=== PATIENT | female | born 1965 | race Caucasian/White ===

== ENCOUNTER 2019-12-20 14:14 | Outpatient (CLI) | payer OTHER, SELFPAY ==
--- NOTE | 2019-12-20 14:24 | MM_ITS ---
WS: [id number] BILATERAL SCREENING DIGITAL MAMMOGRAM WITH CAD HISTORY: SCREENING COMPARISON: 06/19/2015 Bilateral CC and MLO views submitted. Computer aided detection analyzed. Breast composition: There are scattered areas of fibroglandular density. No suspicious masses, microc alcifications or architectural distortion. MM/[place] [id number] IMPRESSION: BI-RADS: 1-Negative FOLLOW UP: 1 Year Follow-up
== END 2019-12-20 14:15 | disposition home or self-care (01) ==
LOC: RADSHAW 14:18
PROVIDERS: PCP Nurse Practitioner Family; Visit Provider Nurse Practitioner Family
DX: Z12.31 Encounter for screening mammogram for malignant neoplasm of breast (principal)
CPT/HCPCS: 77067

== ENCOUNTER → 2020-01-03 13:46 | Outpatient (BNVA) | payer OTHER, SELFPAY | PROVIDERS: PCP Nurse Practitioner Family; Visit Provider Obstetrics & Gynecology | DX: N95.0 Postmenopausal bleeding (principal) | CPT/HCPCS: 76830 ==

== ENCOUNTER 2021-03-06 11:08 | Inpatient (IN) | payer OTHER, SELFPAY ==
[2021-03-06] VITALS (11 sets, daily range): BP systolic 111–120; BP diastolic 72–85; PULSE 81–104; RESP 18–20; TEMP 36.3–36.9; O2SAT 83–95; BMI 36.9
--- NOTE | 2021-03-06 12:25 | XR_ITS ---
WS: [id number] XR chest 1V portable [id number] REASON FOR EXAM: dyspnea, covid FINDINGS: The heart and the mediastinum are within normal limits. There are reticular and groundglass opacities in the lower lung martin and peripheral lung martin in the mid lung. No pleural effusion identified. Mild changes of degenerative spondylosis in the mid and lower thoracic spine. XR/XR chest 1V portable [id number] IMPRESSION: Lung opacities compatible with subacute Covid pneumonitis.
--- NOTE | 2021-03-06 12:33 | W.ED.GENADLT ---
HPI - General Adult General: Chief complaint: COVID symptoms Stated complaint: COVID INFUSION CANT BE DONE Time Seen by Provider: 03/06/21 12:08 History of Present Illness: HPI narrative: CC: Shortness of breath, fever and generalized weakness HPI: This is a [55] yo patient w/ no significant PMH presenting to the ED with malaise, generalized weakness, cough sputum production, and fever at home x 5days. Patient was diagnosed with covid 5 days ago at the onset of symptoms, and was scheduled for MCA infusion today. Patient went to the clinic and was found to have a O2 sat of 84% on RA in the clinic and was told to go the ER. Since onset of symptoms, has had some shortness of breath and decreased PO intake. NO recent travel. Denies chest pain, N/V, diaphoresis, exertional shortness of breath, GI or other complaints. Denies any pleuritic chest pain, recent surgery/immobilization/travel, or hematemesis or hx of VTE in the past. Onset: 5 days ago Duration: ongoing for the last 5 days Location: home Severity: mild/moderate Associated symptoms: Reports dyspnea, nausea and vomiting; Deny chest pain, rash or palpitations Review of Systems Const: Reports: fever(s), chills and other (generalized weaknes, fatigue) Eyes: Denies: change in vision ENMT: Denies: mouth pain Card: Denies: chest pain or palpitations Resp: Reports: dyspnea and non-productive cough GI: Reports: nausea, vomiting and diarrhea; Denies: abdominal pain : Denies: dysuria Musc: Denies: extremity pain Skin/Breast: Denies: rash or new lesions Neuro: Denies: weakness in extremities Psych: Reports: other (Normal mood) Matias/Lymph: Denies: easy bruising PFSH ED PFSH: Family History Father Diabetes Hyperlipidemia Hypertension Heart disease Mother Hyperlipidemia Diabetes Hypertension Heart disease Family/Other Breast cancer paternal aunt Uterine cancer maternal cousin Denies family history of Colon cancer Ovarian cancer Clotting disorder Anesthesia complication Bleeding disorder Thyroid condition Stroke Social History Smoking and tobacco status: never smoked Alcohol intake: never Physical Exam Const: COMMON NORMALS: alert HENMT: COMMON NORMALS: atraumatic HEAD & SCALP: atraumatic MOUTH: moist mucous membranes not abnormal Eye: COMMON NORMALS: EOMs intact bilaterally and conjunctivae normal CONJUNCTIVA: Yes conjunctivae normal Neck/C-Spine: COMMON NORMALS: full ROM and supple Resp: COMMON NORMALS: normal respiratory effort; negative for clear to auscultation bilaterally (coarse breath sounds b/l) AUSCULTATION: not clear to auscultation bilaterally (coarse breath sounds b/l) Cardio: RATE: tachycardic GI: COMMON NORMALS: Soft to palpation and non-tender PALPATION: Yes Soft to palpation Extremity: COMMON NORMALS: full ROM Neuro: SENSORIUM/ORIENTATION: Yes alert MOTOR EXAM: No Abnormal motor strength present and Other motor observations present (no focal motor deficits) Psych: COMMON NORMALS: speech normal SPEECH: Yes normal speech MOOD & AFFECT: Yes euthymic mood Course Vital Signs: Vital signs: Vital Signs Temperature 98.4 F 03/06/21 12:04 Pulse Rate 104 H 03/06/21 12:04 Respiratory Rate 18 03/06/21 12:04 Blood Pressure 120/85 03/06/21 12:04 Pulse Oximetry 93 03/06/21 12:04 MDM - General Adult MDM Narrative: Medical decision making narrative: [55]yo patient presenting to the ED with shortness of breath, cough, and malaise w/ low oxygen in the setting of diagnosed covid x 5 days concerning for covid PNA. Workup today includes XR chest Defer lab work at this time given that the patient is well appearing with stable vital signs and without recent hospitalization or care facility stay. Given History, Exam, and Workup presentation most consistent with pneumonia.Presentation not consistent with PE, COPD exacerbation, Pneumothorax, TB, Atypical ACS, Esophageal Rupture, Toxic Exposure, Foreign Body Airway Obstruction. Workup: CXR Chest, COVID antigen/ COVID PCR send out Intervention: Tylenol 1gram, IVF, GI cocktail PO challenge, serial reassessment, oxygen, decadron, remdesivir [1:00ppm] On reassessment, XR findings of ground-glass opacity. Findings consistent with COVID PNA. Afebrile currently. Patient was noted to be satting at 88% on 10L of oxygen. Will be admitted for observation. Patient is placed on high flow for comfort. 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
[2021-03-06] MEDS: dexamethasone 10 mg/mL INJ 6 MG IVP (13:27)
[2021-03-06] MEDS: lidocaine 2% viscous 15 ML, aluminum-mag hydrox-simethicon 30 ML, sucralfate oral liq 1 GM PO (13:28)
[2021-03-06] MEDS: remdesivir 200 MG in sodium chloride 0.9% (100 ml) 60 ML 100 MG IV (13:31)
--- NOTE | 2021-03-06 13:31 | ECG_ITS ---
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
[2021-03-06] MEDS: sodium chloride 0.9% 1,000 ML 999 ML IV (13:41)
--- NOTE | 2021-03-06 14:13 | P.HP_ITS ---
Providers/Chief Complaint Primary Care Provider: Rupali Nicolas APN Chief Complaint: COVID INFUSION CANT BE DONE History of Present Illness Gregoria Javier is a 55 year old female with past medical history of hypertension, postmenopausal bleeding, who presents to [facility] due to fevers, cough, shortness of breath, chills, shortness of breath with exertion for the last 5 days. She has not been vaccinated for COVID. Has not been vaccinated for the flu. Has not received pneumonia vaccine. Her also is sick on oxygen at home with COVID-19. No history of lung disease, no history of smoking, no history of heart disease, no history of diabetes. She tells me that over the last few days she has been experiencing increasing shortness of breath, she was scheduled to have a monoclonal infusion today, however her O2 sats were in the low 80s, was told to come to the emergency room. Review of Systems Const: Reports: fever(s), chills, body aches, fatigue and malaise Eyes: Denies: change in vision or blurry vision ENMT: Denies: nasal congestion Card: Denies: chest pain Resp: Reports: dyspnea and non-productive cough; Denies: productive cough or wheezing GI: Denies: abdominal pain, nausea, vomiting, hematemesis, diarrhea, constipation, hematochezia or melena : Denies: flank pain, dysuria or urinary frequency Musc: Denies: neck pain or back pain Skin/Breast: Denies: rash Neuro: Denies: headache(s), dizziness or vertigo Endo: Denies: polyuria or polydipsia Medications/Allergies Home Medications Medication Instructions Recorded Confirmed Last Taken Type guaifenesin 600 mg tablet, 600 mg PO Q12H PRN 12/19/19 03/06/21 03/06/21 History extended release 12 hr medroxyprogesterone 2.5 mg tablet 2.5 mg PO QAM 12/19/19 03/06/21 03/06/21 History omeprazole 20 mg tablet,delayed 20 mg PO DAILY 12/19/19 03/06/21 Unknown History release Vitamin D3 1 cap PO DAILY 03/06/21 03/06/21 Unknown History albuterol sulfate [Ventolin HFA] 2 puff INHALATION Q4H PRN 03/06/21 03/06/21 Unknown History ascorbic acid (vitamin C) [Vitamin 500 mg PO DAILY 03/06/21 03/06/21 Unknown History C] aspirin [Aspir-81] 81 mg PO DAILY 03/06/21 03/06/21 Unknown History azelastine 2 spray INTRANASAL BID 03/06/21 03/06/21 Unknown History azithromycin 03/06/21 Unknown History dexamethasone 03/06/21 Unknown History estradiol 1 mg PO QAM 03/06/21 03/06/21 03/06/21 09:40 History fexofenadine 180 mg PO QAM 03/06/21 03/06/21 03/06/21 History lisinopril 03/06/21 Unknown History olopatadine 1 drp OPHTHALMIC (EYE) DAILY PRN 03/06/21 03/06/21 Unknown History triamterene-hydrochlorothiazid 1 tab PO QAM 03/06/21 03/06/21 03/06/21 History zinc 50 mg PO DAILY 03/06/21 03/06/21 Unknown History Allergies Allergy/AdvReac Type Severity Reaction Status Date / Time Sulfa (Sulfonamide Allergy Intermediate rash Verified 01/15/20 13:17 Antibiotics) PFSH Acute PFSH: Medical History Abnormal uterine bleeding (AUB) Pelvic pain Surgical History H/O section H/O tubal ligation S/P cholecystectomy S/P endometrial ablation 2010 Family History Father Diabetes Hyperlipidemia Hypertension Heart disease Mother Hyperlipidemia Diabetes Hypertension Heart disease Family/Other Breast cancer paternal aunt Uterine cancer maternal cousin Denies family history of Colon cancer Ovarian cancer Clotting disorder Anesthesia complication Bleeding disorder Thyroid condition Stroke Social History Smoking and tobacco status: never smoked Alcohol intake: never Vitals/I&O/Wt Last Vital Signs Temp 98.4 F 03/06/21 12:04 Pulse 100 03/06/21 13:43 Resp 20 H 03/06/21 13:43 BP 120/85 03/06/21 13:43 Pulse Ox 93 03/06/21 13:43 Weight last 48 hrs Weight 113.398 kg Physical Exam Const: COMMON NORMALS: no acute distress and patient oriented x3 GENERAL APPEARANCE: cooperative and comfortable HENMT: COMMON NORMALS: normocephalic HEAD & SCALP: normocephalic Eye: COMMON NORMALS: Equal, round and reactive pupils present and EOMs intact bilaterally GENERAL EYE: appearance normal, both eyes and all related structures PUPIL: Yes Equal, round and reactive pupils present Neck/C-Spine: COMMON NORMALS: full ROM and no lymphadenopathy THYROID: Thyroid normal Lymph: LYMPHATIC: no lymphadenopathy noted Resp: COMMON NORMALS: normal respiratory effort, No retractions, No use of accessory muscles and clear to auscultation bilaterally AUSCULTATION: clear to auscultation bilaterally Cardio: COMMON NORMALS: regular rate, regular rhythm, S1 normal heart sound present, S2 normal heart sound present, No gallops present (Cardio), No clicks present (Cardio) and No murmurs present (Cardio) RATE: regular rate RHYTHM: regular rhythm HEART SOUNDS: S1 normal heart sound present and S2 normal heart sound present GI: COMMON NORMALS: Normal to inspection, nondistended, normoactive bowel sounds present, Soft to palpation, non-tender and No hepatosplenomegaly present PALPATION: Yes Soft to palpation and Yes No hepatosplenomegaly present Extremity: COMMON NORMALS: normal to inspection, full ROM and no pedal edema Neuro: COMMON NORMALS: patient oriented x3, CN's II-XII intact bilaterally, moves all extremities and no focal motor deficits Psych: COMMON NORMALS: mental status grossly normal, Normal thought process present and cooperative THOUGHT PROCESS: Normal thought process present A&P Assessment and plan (1) Pneumonia due to COVID-19 virus: Hypoxia secondary to COVID-19 Admit to general medical floors -Oxygen therapy, 8 L, consult respiratory therapy ABG -Remdesivir day 1 of 5 -Decadron day 1 of 10 -Hold off on Actemra -Doxycycline for anti-inflammatory coverage, second bacterial pneumonia coverage -Follow blood cultures, urine cultures, urine bacterial antigens, sputum cultures -Flu testing -Vitamin C, vitamin D, zinc -Budesonide -DuoNeb -Monitor respiratory status closely -Blood work pending -CT angiogram pending -Lovenox for DVT prophylaxis -Full code Status: Acute (2) Hypoxia: Status: Acute Attestations Medical Necessity Statement*: Patient course hospitalization and inpatient COVID-19 minutes, due to hypoxia secondary COVID-19 Coding Level of Care Code Acute Farm Loan Representative for [facility] Fwd Diagnoses Pneumonia due to COVID-19 virus U07.1; J12.82 Hypoxia R09.02
--- NOTE | 2021-03-06 14:53 | CT_ITS ---
WS: [id number] CTA OF THE CHEST WITH PULMONARY EMBOLISM PROTOCOL TECHNIQUE: High-resolution contrast enhanced CTA of the chest with coronal and sagittal reformatted i mages with pulmonary embolism protocol. MIP images are also reviewed. CLINICAL INFORMATION: eval for pe COMPARISON: None. DLP: 1059.[address] scans at [facility] use at least one of these dose optimization techniques: automated e xposure control; mA and/or kV adjustment per patient size (includes targeted exams where dose is matc hed to clinical indication); or iterative reconstruction. FINDINGS: Diffuse bilateral hazy groundglass infiltrates within both lungs suspicious for Covid 19 pneumonia. N o significant pleural fluid. Normal caliber thoracic aorta. Proximal main pulmonary arteries are normal. Normal segmental and subs egmental pulmonary arteries. No evidence of pulmonary embolus. Reactive mediastinal and peribronchial lymph nodes. Mild bilateral bronchovascular thickening. Prominent hilar lymph nodes likely reactive. Normal caliber descending thoracic aorta. Adrenal glands are normal. Cholecystectomy clips. Small es ophageal hiatal hernia. CT/CT angio chest PE protcl [id number] IMPRESSION: 1. Diffuse hazy bilateral pulmonary infiltrates suspicious for Covid 19 pneumo haydee. 2. No evidence of pulmonary embolus. 3. Reactive mediastinal and hilar lymph nodes with bronchovascular thickening. 4. Prior cholecystectomy.
[2021-03-06 14:59] LABS: Add Urine Microscopic? NO
[2021-03-06 15:01] LABS: Bilirubin Urine Neg (Negative); Blood Urine Neg (Negative); Glucose Urine UA Norm (Normal); Ketones Urine Negative (Negative); Leukocyte Esterase Urine Negative (Negative); Nitrate Urine Negative (Negative); Protein Urine Neg (Negative); Specific Gravity, Urine 1.005 (1.005-1.030); Sulfosalicylic Acid Urine Negative (Negative); Urine Appearance Clear (CLEAR); Urine Color Yellow (Yellow); Urobilinogen Urine Norm (Negative); pH Urine 8 (5-7)
[2021-03-06 15:17] LABS: Charge for UA Resulting for Rev
--- NOTE | 2021-03-06 15:31 | ECG_ITS ---
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1965 Requested By: Philip Gamble Order Number: [id number] Reading MD: MIRACLE SALAZAR Measurements Intervals [place] Rate: 86 P: 20 [place]: 149 QRS: 12 QRSD: 107 T: 18 QT: 373 QTc: 448 Interpretive Statements SINUS RHYTHM INFERIOR MYOCARDIAL INFARCTION , PROBABLY OLD [40+ ms Q WAVE AND/OR ST/T ABNORMALITY IN II/aVF] Compared to ECG 03/06/2021 14:06:46 Myocardial infarct finding now present Electronically Signed On 03-07-2021 18:21:27 GATE MORTISER OPERATOR by MIRACLE SALAZAR [id number]
[2021-03-06 16:23] LABS: Basophils % 0.2 %; Hematocrit 43.3 % (37.0-47.0); Hemoglobin 14.3 g/dL (11.5-15.3); Lymphocytes # 0.8 10^3/uL (0.8-4.8); Lymphocytes % 6.3 %; Mean Corpuscular Volume 84.9 fl (81-99); Mean Platelet Volume 10.1 fL (7.4-10.4); Monocytes # 0.5 10^3/uL (0.2-0.9); Monocytes % 3.7 %; Neutrophils # 10.85 10^3/uL (1.8-7.7); Neutrophils % 89.3 %; Nucleated Red Blood Cells % 0 %; Platelet Count 273 10^3/cmm (130-400); Red Cell Distribution Width 12.8 % (12.1-15.1); White Blood Count 12.1 10^3/uL (4.0-10.0)
[2021-03-06 16:52] LABS: NT Pro B Type Natriuretic Pept 83 pg/mL (0-125); Procalcitonin 0.03 ng/mL (0-0.5)
[2021-03-06 16:56] LABS: Slide Review Slide Review Perform
[2021-03-06 17:03] LABS: Alanine Aminotransferase 59 U/L (0-33); Albumin Level 3.3 g/dL (3.5-5.2); Alkaline Phosphatase 68 IU/L (35-105); Anion Gap 19.4 (5-19); Aspartate Amino Transferase 51 U/L (0-32); Blood Urea Nitrogen 10 mg/dL (6-20); C Reactive Protein 35.4 mg/L (0.0-4.9); Calcium 7.8 mg/dL (8.5-10.5); Carbon Dioxide 21 mmol/L (22-29); Chloride 96 mmol/L (98-107); Glomerular Filtration Rate 103.8 mL/min (90-130); Glucose 151 mg/dL (65-115); Magnesium 2.1 mg/dL (1.7-2.3); Osmolality Calculated 276 mOsm/kg (285-295); Potassium 4.4 mmol/L (3.5-5.1); Sodium 132 mmol/L (136-145); Total Bilirubin 0.4 mg/dL (0.15-1.2); Total Protein 6.3 g/dL (6.6-8.7)
[2021-03-06 17:05] LABS: D Dimer 0.45 ug/mIFEU (0-0.59)
[2021-03-06 17:12] LABS: Estmated Average Glucose 128; Hemoglobin A1C 6.1 % (4.0-6.0)
[2021-03-06 17:20] LABS: Troponin(5th) Baseline 6 ng/L (0-10)
[2021-03-06 17:20] LABS: ABG PCO2 33.5 mmHg (35-45); ABG PH Result 7.45 (7.35-7.45); Base Excess ABG -0.4 mmol/L (-2.0-2.0); Blood Gas Sample Type Arterial; PO2 ABG 75.7 mmHg (80.0-100.0)
[2021-03-06 17:21] LABS: Blood Gas Operator Identificat ED; Blood Gas Sample Site Brachial, right; Oxygen Device NC
[2021-03-06] MEDS: docusate sodium 100 mg Capsule PO (18:17)
[2021-03-06] MEDS: famotidine 20 mg Tablet PO (18:18)
[2021-03-06] MEDS: enoxaparin 40 mg/0.4 mL Syringe SUBCUT (18:18)
[2021-03-06] MEDS: ascorbic acid 500 mg Tablet PO (18:18)
[2021-03-06] MEDS: doxycycline 100 MG in sodium chloride 0.9% (plus) 100 ML IV (18:18)
[2021-03-06 18:41] LABS: Troponin 5 2HR Delta 0 ABS# (0-10)
--- NOTE | 2021-03-06 19:31 | ECG_ITS ---
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1965 Requested By: Philip Gamble Order Number: [id number] Reading MD: MIRACLE SALAZAR Measurements Intervals [place] Rate: 87 P: 33 [place]: 139 QRS: 31 QRSD: 112 T: 42 QT: 372 QTc: 449 Interpretive Statements SINUS RHYTHM LOW QRS VOLTAGE IN PRECORDIAL LEADS [QRS DEFLECTION < 1.0 mV IN CHEST LEADS] MODERATE INTRAVENTRICULAR CONDUCTION DELAY [110+ ms QRS DURATION] Compared to ECG 03/06/2021 15:49:47 Low QRS voltage now present Intraventricular conduction delay now present Myocardial infarct finding no longer present Electronically Signed On 03-07-2021 18:19:19 AUTOMATION APPLICATION ENGINEER by MIRACLE SALAZAR [id number]
[2021-03-06] MEDS: ipratropium-albuterol 3 mL Neb INHALATION (20:56)
[2021-03-06] MEDS: budesonide 0.5 mg/2 mL Neb INHALATION (20:56)
[2021-03-07] VITALS (11 sets, daily range): BP systolic 100–134; BP diastolic 64–85; PULSE 73–89; RESP 18–90; TEMP 36.4–36.8; O2SAT 88–94
[2021-03-07 03:15] LABS: Influenza A by IFA Negative (Negative); Influenza B by IFA Negative (Negative)
[2021-03-07 05:22] LABS: Basophils % 0.1 %; Hematocrit 41.5 % (37.0-47.0); Hemoglobin 13.9 g/dL (11.5-15.3); Lymphocytes # 1.2 10^3/uL (0.8-4.8); Lymphocytes % 10.7 %; Mean Corpuscular HGB Conc 33.5 g/dL (30.0-36.0); Mean Corpuscular Hemoglobin 28.4 pg (28.0-34.0); Mean Corpuscular Volume 84.7 fl (81-99); Mean Platelet Volume 9.9 fL (7.4-10.4); Monocytes # 0.7 10^3/uL (0.2-0.9); Monocytes % 5.9 %; Neutrophils # 9.35 10^3/uL (1.8-7.7); Neutrophils % 82.8 %; Nucleated Red Blood Cells % 0 %; Platelet Count 291 10^3/cmm (130-400); Red Cell Distribution Width 12.9 % (12.1-15.1); White Blood Count 11.3 10^3/uL (4.0-10.0)
[2021-03-07 05:43] LABS: INR 0.94 (0.8-1.2)
[2021-03-07 05:50] LABS: Alanine Aminotransferase 45 U/L (0-33); Alkaline Phosphatase 64 IU/L (35-105); Anion Gap 18.2 (5-19); Aspartate Amino Transferase 27 U/L (0-32); Blood Urea Nitrogen 12 mg/dL (6-20); Carbon Dioxide 20 mmol/L (22-29); Chloride 99 mmol/L (98-107); Globulin 3.3 g/dL (1.3-4.6); Glomerular Filtration Rate 128.1 mL/min (90-130); Glucose 174 mg/dL (65-115); Magnesium 2.1 mg/dL (1.7-2.3); Osmolality Calculated 280 mOsm/kg (285-295); Phosphorus 3.1 mg/dL (2.5-4.5); Potassium 4.2 mmol/L (3.5-5.1); Sodium 133 mmol/L (136-145); Total Bilirubin 0.3 mg/dL (0.15-1.2); Total Protein 6.3 g/dL (6.6-8.7)
[2021-03-07 05:56] LABS: Procalcitonin 0.04 ng/mL (0-0.5)
[2021-03-07] MEDS: doxycycline 100 MG in sodium chloride 0.9% (plus) 100 ML IV ×2 (06:15→16:47)
[2021-03-07] MEDS: budesonide 0.5 mg/2 mL Neb INHALATION ×2 (08:08→20:05)
[2021-03-07] MEDS: ipratropium-albuterol 3 mL Neb INHALATION ×3 (08:08→20:05)
[2021-03-07] MEDS: aspirin 81 mg EC Tablet PO (08:31)
[2021-03-07] MEDS: docusate sodium 100 mg Capsule PO ×2 (08:31→16:46)
[2021-03-07] MEDS: ascorbic acid 500 mg Tablet PO ×2 (08:31→16:56)
[2021-03-07] MEDS: cholecalciferol (vitamin D3) 1,000 unit Tablet 1000 UNIT PO (08:31)
[2021-03-07] MEDS: famotidine 20 mg Tablet PO ×2 (08:31→16:46)
[2021-03-07] MEDS: zinc gluconate 50 mg Tablet PO (08:31)
--- NOTE | 2021-03-07 10:48 | PC.CHAP ---
Pastoral Care Encounter/Spiritual Assessment Type of Contact [] Declined stogie packer visit [] Patient/Family/Request visit [] Outpatient visit [] Follow-up visit [] Physician referral [] Code/Alert [] Routine visit [] Staff referral [] Actively dying [] Patient sleeping [] Family support [] [] Out of room [] Palliative care [] [] Receiving care in room [] Pre-surgical visit [] Trauma [] Long length of stay [] ICU visit [xx] Other: Isolation due to covid-19 Relational/Emotional Strength [] Patient feels connected with others/family/visitors/staff [] Distress [] Loneliness/isolation [] Abandonment Spirituality of Patient [] Person of Willow [] Attends Restorationism of their Willow [] Believes in Prayer [] Reads Bible or Adventism materials [] There are Spiritual issues to be addressed Industrial Safety And Health Specialist Interventions [] Prayer [] Active listening [] Non-anxious presence [] Spiritual/emotional support [] Crisis/trauma care [] Spiritual counseling [] Bereavement support [] Provided bereavement packet [] Provided Bible/devotional materials [] Provided toy/stuffed animal, coloring book to patient or family member [] Provided Communion [] Anointing/[place] [] Salvation [] Completed spiritual assessment [] Other: Impact on Illness or Injury [] Angry [] Fearful [] Anxious [] Often cries [] Exhaustion [] Unable to work [] Unable to attend anabaptism [] Unable to walk/stand [] Unable to read [] Unable to drive [] Unable to eat/drink [] Unable to sleep [] Unable to be with family [] Patient intubated [] Other: Summary Time spent with patient
[2021-03-07 11:57] LABS: Adenovirus Not Detected (NOT DETECT); Chlamydia Pneumoniae Not Detected (NOT DETECT); Coronavirus 229E,HKU1,NL63,OC4 Not Detected (NOT DETECT); Human Metapneumovirus Not Detected (NOT DETECT); Human Rhinovirus/Enterovirus Not Detected (NOT DETECT); Influenza A Not Detected (NOT DETECT); Influenza A H1 Not Detected (NOT DETECT); Influenza A H1-2009 Not Detected (NOT DETECT); Influenza A H3 Not Detected (NOT DETECT); Influenza B Not Detected (NOT DETECT); Mycoplasma Pneumoniae Not Detected (NOT DETECT); Parainfluenza Virus Type 1 Not Detected (NOT DETECT); Parainfluenza Virus Type 2 Not Detected (NOT DETECT); Parainfluenza Virus Type 3 Not Detected (NOT DETECT); Parainfluenza Virus Type 4 Not Detected (NOT DETECT); Respiratory Syncytial Virus A Not Detected (NOT DETECT); Respiratory Syncytial Virus B Not Detected (NOT DETECT); SARS-COV-2 Detected (NOT DETECT)
[2021-03-07] MEDS: dexamethasone 10 mg/mL INJ 6 MG IVP (14:12)
[2021-03-07] MEDS: enoxaparin 40 mg/0.4 mL Syringe SUBCUT (16:47)
--- NOTE | 2021-03-07 17:18 | PM.PN ---
Subjective Subjective: Interval history: Patient was seen this morning, sitting up in a chair, complaining of shortness of breath, had difficulty sleeping throughout the night Vitals/I&O/Wt Last Vital Signs Temp 97.6 F 03/07/21 11:46 Pulse 87 03/07/21 16:00 Resp 20 H 03/07/21 16:00 BP 123/85 03/07/21 15:56 Pulse Ox 92 03/07/21 16:00 03/07/21 03/07/21 03/07/21 06:59 14:59 22:59 Intake Total 700 / 700 Output Total 400 / 400 Balance -400 / 800 700 / 700 Weight last 48 hrs Weight 113.398 kg Physical Exam Const: COMMON NORMALS: no acute distress and patient oriented x3 Resp: COMMON NORMALS: normal respiratory effort, No retractions, No use of accessory muscles and clear to auscultation bilaterally AUSCULTATION: clear to auscultation bilaterally Cardio: COMMON NORMALS: regular rate, regular rhythm, S1 normal heart sound present and S2 normal heart sound present RATE: regular rate RHYTHM: regular rhythm HEART SOUNDS: S1 normal heart sound present and S2 normal heart sound present GI: COMMON NORMALS: Normal to inspection, nondistended, normoactive bowel sounds present, Soft to palpation and non-tender PALPATION: Yes Soft to palpation Extremity: COMMON NORMALS: no pedal edema Neuro: COMMON NORMALS: patient oriented x3 Psych: COMMON NORMALS: mental status grossly normal Data : 03/07/21 04:34 03/07/21 04:34 Micro: Microbiology 03/06/21 16:04 Blood Culture - Preliminary Blood NEGATIVE TO DATE 03/06/21 16:00 Blood Culture - Preliminary Blood NEGATIVE TO DATE 03/06/21 14:57 Urine Culture - Preliminary Urine,Voided 03/06/21 14:57 Bacterial Antigens - Final Urine,Voided A&P Assessment and plan (1) Pneumonia due to COVID-19 virus: Hypoxia secondary to COVID-19 Admit to general medical floors -Oxygen therapy, 8 L, consult respiratory therapy ABG -Remdesivir day 2 of 5 -Decadron day 2 of 10 -Hold off on Actemra -Doxycycline for anti-inflammatory coverage, second bacterial pneumonia coverage -Follow blood cultures, urine cultures, urine bacterial antigens, sputum cultures -Vitamin C, vitamin D, zinc -Budesonide -DuoNeb -Monitor respiratory status closely -Blood work pending -Lovenox for DVT prophylaxis -Full code Status: Acute (2) Hypoxia: Status: Acute Attestations Medical Necessity Statement*: Patient requires hospitalization due to COVID-19 pneumonia Coding Level of Care Code Acute Installation Coordinator for [facility] Fwd Diagnoses Pneumonia due to COVID-19 virus U07.1; J12.82 Hypoxia R09.02
[2021-03-07] MEDS: remdesivir 100 MG in sodium chloride 0.9% (100 ml) 80 ML IV (17:58)
[2021-03-08] VITALS (16 sets, daily range): BP systolic 101–132; BP diastolic 56–82; PULSE 63–89; RESP 17–20; TEMP 36.4–37; O2SAT 83–96
[2021-03-08 04:16] LABS: Basophils % 0.1 %; Hematocrit 40.6 % (37.0-47.0); Hemoglobin 13.4 g/dL (11.5-15.3); Lymphocytes % 13.7 %; Mean Corpuscular Hemoglobin 28.5 pg (28.0-34.0); Mean Corpuscular Volume 86.2 fl (81-99); Monocytes # 0.7 10^3/uL (0.2-0.9); Monocytes % 9.6 %; Neutrophils # 5.59 10^3/uL (1.8-7.7); Neutrophils % 75.7 %; Nucleated Red Blood Cells % 0 %; Platelet Count 262 10^3/cmm (130-400); Red Blood Count 4.71 10^6/uL (4.1-5.3); Red Cell Distribution Width 12.8 % (12.1-15.1); White Blood Count 7.4 10^3/uL (4.0-10.0)
[2021-03-08 04:38] LABS: INR 1.08 (0.8-1.2)
[2021-03-08 04:41] LABS: Slide Review Slide Review Perform
[2021-03-08 04:44] LABS: Alanine Aminotransferase 31 U/L (0-33); Alkaline Phosphatase 56 IU/L (35-105); Anion Gap 17.2 (5-19); Aspartate Amino Transferase 16 U/L (0-32); Blood Urea Nitrogen 11 mg/dL (6-20); Calcium 7.8 mg/dL (8.5-10.5); Carbon Dioxide 21 mmol/L (22-29); Chloride 102 mmol/L (98-107); Globulin 3.1 g/dL (1.3-4.6); Glomerular Filtration Rate 165.7 mL/min (90-130); Glucose 143 mg/dL (65-115); Magnesium 2.1 mg/dL (1.7-2.3); NT Pro B Type Natriuretic Pept 174 pg/mL (0-125); Osmolality Calculated 284 mOsm/kg (285-295); Phosphorus 3.1 mg/dL (2.5-4.5); Potassium 4.2 mmol/L (3.5-5.1); Sodium 136 mmol/L (136-145); Total Bilirubin 0.2 mg/dL (0.15-1.2); Total Protein 6.1 g/dL (6.6-8.7)
[2021-03-08] MEDS: doxycycline 100 MG in sodium chloride 0.9% (plus) 100 ML IV (06:32)
[2021-03-08] MEDS: cholecalciferol (vitamin D3) 1,000 unit Tablet 1000 UNIT PO (07:52)
[2021-03-08] MEDS: aspirin 81 mg EC Tablet PO (07:52)
[2021-03-08] MEDS: ascorbic acid 500 mg Tablet PO ×2 (07:52→17:03)
[2021-03-08] MEDS: zinc gluconate 50 mg Tablet PO (07:52)
[2021-03-08] MEDS: famotidine 20 mg Tablet PO ×2 (07:52→17:03)
[2021-03-08] MEDS: budesonide 0.5 mg/2 mL Neb INHALATION ×2 (08:01→20:14)
[2021-03-08] MEDS: ipratropium-albuterol 3 mL Neb INHALATION ×4 (08:01→20:14)
[2021-03-08 09:12] LABS: ABG PH Result 7.49 (7.35-7.45); Alveolar-Arterial Oxygen Gradi 8.3 mmHg (5-10); Arterial Blood Gas Hematocrit 45.1 % (37-47); Base Excess ABG 3.3 mmol/L (-2.0-2.0); Blood Gas Allen Test Pos; Blood Gas Sample Type Arterial; Carboxyhemoglobin 0.3 %THgb (0.4-20.1); HCO3 ABG 26.4 mmol/L (22-26); HGB O2 Sat 78.9 % (95-100); Ionized Calcium Level - ABG 1.1 mmol/L (1.1-1.4); Methemoglobin 0.7 % (0.4-1.5); Oxygen Saturation ABG 79.7; PO2 ABG 42.4 mmHg (80.0-100.0); Potassium Level - ABG 3.6 mmol/L (3.5-5.0); Total Hemoglobin 14.7 g/dL (12-16)
[2021-03-08 09:17] LABS: Blood Gas Operator Identificat ED; Blood Gas Sample Site Radial, left; Oxygen Device NC
[2021-03-08] MEDS: cefTRIAXone 1,000 MG in sodium chloride 0.9% (plus) 50 ML 100 MG IV (09:54)
[2021-03-08] MEDS: FUROsemide 10 mg/mL SDV 4mL 40 MG IVP (09:54)
[2021-03-08] MEDS: azithromycin 500 MG in sodium chloride 0.9% 250 ML 250 MG IV (09:56)
--- NOTE | 2021-03-08 12:48 | P.PN_ITS ---
Subjective Subjective: Interval history: Patient was seen this morning, she sitting up in bed, currently on heated high flow, due increased shortness of breath, she did not get much sleep overnight Vitals/I&O/Wt Last Vital Signs Temp 97.7 F 03/08/21 08:00 Pulse 89 03/08/21 12:10 Resp 18 03/08/21 12:10 BP 132/82 03/08/21 08:00 Pulse Ox 90 03/08/21 12:10 03/07/21 03/08/21 03/08/21 22:59 06:59 14:59 Intake Total 200 / 900 240 / 1140 100 / 100 Balance 200 / 900 240 / 1140 100 / 100 Weight last 48 hrs Weight 116.029 kg Physical Exam Const: COMMON NORMALS: no acute distress and patient oriented x3 Resp: COMMON NORMALS: normal respiratory effort, No retractions and No use of accessory muscles AUSCULTATION: diminished lung sounds diffuse Cardio: COMMON NORMALS: regular rate, regular rhythm, S1 normal heart sound present and S2 normal heart sound present RATE: regular rate RHYTHM: regular rhythm HEART SOUNDS: S1 normal heart sound present and S2 normal heart sound present GI: COMMON NORMALS: Normal to inspection, nondistended, normoactive bowel sounds present, Soft to palpation and non-tender PALPATION: Yes Soft to palpation Extremity: COMMON NORMALS: no pedal edema Neuro: COMMON NORMALS: patient oriented x3 Psych: COMMON NORMALS: mental status grossly normal Data : 03/08/21 03:30 03/08/21 03:30 Micro: Microbiology 03/06/21 14:57 Urine Culture - Final Urine,Voided 03/06/21 16:04 Blood Culture - Preliminary Blood NEGATIVE TO DATE 03/06/21 16:00 Blood Culture - Preliminary Blood NEGATIVE TO DATE A&P Assessment and plan (1) Pneumonia due to COVID-19 virus: Hypoxia secondary to COVID-19 Admit to general medical floors -ABG shows pH 7.49, PO2 42.4, bicarb 26.4, PCO2 35 on 12 L -Currently on heated high flow -Remdesivir day 3 of 5 -Decadron day 3 of 10 -1 dose Actemra today -Expand antibiotic coverage to Rocephin and azithromycin -Follow blood cultures, urine cultures, urine bacterial antigens, sputum cultures -Vitamin C, vitamin D, zinc -Budesonide -DuoNeb -Monitor respiratory status closely -Blood work pending -Lovenox for DVT prophylaxis -Full code Status: Acute (2) Hypoxia: Status: Acute Attestations Medical Necessity Statement*: Patient requires hospitalization for pneumonia secondary to COVID-19 Coding Level of Care Code Acute 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
[2021-03-08] MEDS: tocilizumab 800 MG in sodium chloride 0.9% (100 ml) 100 ML 100 MG IV (13:35)
[2021-03-08] MEDS: dexamethasone 10 mg/mL INJ 6 MG IVP (13:41)
[2021-03-08] MEDS: docusate sodium 100 mg Capsule PO (17:03)
[2021-03-08] MEDS: enoxaparin 40 mg/0.4 mL Syringe SUBCUT (17:03)
[2021-03-08] MEDS: remdesivir 100 MG in sodium chloride 0.9% (100 ml) 80 ML IV (17:17)
[2021-03-09] VITALS (105 sets, daily range): BP systolic 93–171; BP diastolic 60–135; PULSE 63–113; RESP 10–26; TEMP 36.4–37.1; O2SAT 78–104
[2021-03-09 03:42] LABS: ABG PCO2 41.8 mmHg (35-45); ABG PH Result 7.48 (7.35-7.45); Arterial Blood Gas Hematocrit 42.6 % (37-47); Base Excess ABG 6.6 mmol/L (-2.0-2.0); Blood Gas Allen Test Pos; Blood Gas Sample Site Radial, right; Blood Gas Sample Type Arterial; HCO3 ABG 30.9 mmol/L (22-26); Oxygen Device NC; PO2 ABG 58.5 mmHg (80.0-100.0)
[2021-03-09 05:45] LABS: Basophils % 0.2 %; Hematocrit 40.8 % (37.0-47.0); Hemoglobin 13.4 g/dL (11.5-15.3); Lymphocytes # 1.3 10^3/uL (0.8-4.8); Lymphocytes % 20.5 %; Mean Corpuscular HGB Conc 32.8 g/dL (30.0-36.0); Mean Corpuscular Hemoglobin 27.9 pg (28.0-34.0); Mean Platelet Volume 9.5 fL (7.4-10.4); Monocytes # 0.6 10^3/uL (0.2-0.9); Monocytes % 9.3 %; Neutrophils # 4.24 10^3/uL (1.8-7.7); Nucleated Red Blood Cells % 0 %; Platelet Count 318 10^3/cmm (130-400); Red Cell Distribution Width 12.3 % (12.1-15.1); White Blood Count 6.1 10^3/uL (4.0-10.0)
[2021-03-09 05:55] LABS: INR 1.02 (0.8-1.2)
[2021-03-09 06:07] LABS: Lactate (Lactic Acid level) 1.2 mmol/L (0.5-2.2)
[2021-03-09 06:17] LABS: NT Pro B Type Natriuretic Pept 201 pg/mL (0-125); Procalcitonin 0.03 ng/mL (0-0.5)
[2021-03-09 06:29] LABS: Slide Review Slide Review Perform
[2021-03-09 06:33] LABS: Alanine Aminotransferase 27 U/L (0-33); Albumin Level 2.8 g/dL (3.5-5.2); Alkaline Phosphatase 58 IU/L (35-105); Anion Gap 16.8 (5-19); Aspartate Amino Transferase 17 U/L (0-32); Blood Urea Nitrogen 11 mg/dL (6-20); C Reactive Protein 34.1 mg/L (0.0-4.9); Carbon Dioxide 24 mmol/L (22-29); Chloride 95 mmol/L (98-107); Creatine Phosphokinase 41 U/L (26-192); Globulin 3.3 g/dL (1.3-4.6); Glomerular Filtration Rate 128.1 mL/min (90-130); Glucose 137 mg/dL (65-115); Magnesium 2.2 mg/dL (1.7-2.3); Osmolality Calculated 276 mOsm/kg (285-295); Potassium 3.8 mmol/L (3.5-5.1); Sodium 132 mmol/L (136-145); Total Bilirubin 0.3 mg/dL (0.15-1.2); Total Protein 6.1 g/dL (6.6-8.7)
--- NOTE | 2021-03-09 07:00 | XRR_ITS ---
PROCEDURE INFORMATION: Exam: XR Chest Exam date and time: 03/09/2021 7:00 AM Age: 55 years old Clinical indication: Shortness of breath; Additional info: SOB TECHNIQUE: Imaging protocol: XR of the chest. Views: 1 view. Total images: 1 COMPARISON: CR XR chest 1V portable [id number] 03/06/2021 12:32 PM FINDINGS: Lungs: Bilateral pulmonary opacities are again noted and have shown interval worsening from the prior exam. Pleural spaces: Unremarkable. No pleural effusion. No pneumothorax. Heart/Mediastinum: Heart size is stable when compared to the prior exam. Bones/joints: Osseous structures are unchanged from the prior exam. XR/XR chest 1V portable [id number] IMPRESSION: Bilateral pulmonary opacities are again noted and have shown interval worsening from the prior exam.
[2021-03-09] MEDS: budesonide 0.5 mg/2 mL Neb INHALATION ×2 (07:43→20:13)
[2021-03-09] MEDS: ipratropium-albuterol 3 mL Neb INHALATION ×4 (07:43→20:13)
[2021-03-09] MEDS: zinc gluconate 50 mg Tablet PO (08:19)
[2021-03-09] MEDS: docusate sodium 100 mg Capsule PO (08:19)
[2021-03-09] MEDS: aspirin 81 mg EC Tablet PO (08:19)
[2021-03-09] MEDS: ascorbic acid 500 mg Tablet PO ×2 (08:19→17:56)
[2021-03-09] MEDS: cholecalciferol (vitamin D3) 1,000 unit Tablet 1000 UNIT PO (08:19)
[2021-03-09] MEDS: famotidine 20 mg Tablet PO ×2 (08:19→17:56)
[2021-03-09] MEDS: FUROsemide 10 mg/mL SDV 4mL 40 MG IVP (10:29)
[2021-03-09] MEDS: azithromycin 500 MG in sodium chloride 0.9% 250 ML 250 MG IV (10:29)
--- NOTE | 2021-03-09 10:36 | PM.PN ---
Subjective Subjective: Interval history: Patient was seen this morning, she tells me that she is more short of breath this morning, she feels tired this morning she did get rest overnight, but was waking up short of breath, currently on 60 L 100%, O2 sats in the high 80s Vitals/I&O/Wt Last Vital Signs Temp 97.5 F L 03/09/21 08:00 Pulse 82 03/09/21 08:00 Resp 20 H 03/09/21 08:00 BP 132/85 03/09/21 08:00 Pulse Ox 92 03/09/21 08:00 03/08/21 03/09/21 03/09/21 22:59 06:59 14:59 Intake Total 780 / 880 240 / 240 Output Total 300 / 2800 500 / 3300 Balance 480 / -1920 -500 / -2420 240 / 240 Weight last 48 hrs Weight 116.029 kg Physical Exam Const: COMMON NORMALS: no acute distress and patient oriented x3 Resp: COMMON NORMALS: normal respiratory effort, No retractions and No use of accessory muscles EFFORT & INSPECTION: Yes respiratory distress (Mild respiratory distress, nasal flaring, intercostal retractions) AUSCULTATION: wheezes Cardio: COMMON NORMALS: regular rate, regular rhythm, S1 normal heart sound present and S2 normal heart sound present RATE: regular rate RHYTHM: regular rhythm HEART SOUNDS: S1 normal heart sound present and S2 normal heart sound present GI: COMMON NORMALS: Normal to inspection, nondistended, normoactive bowel sounds present, Soft to palpation and non-tender PALPATION: Yes Soft to palpation Extremity: COMMON NORMALS: no pedal edema Neuro: COMMON NORMALS: patient oriented x3 Psych: COMMON NORMALS: mental status grossly normal Data : 03/09/21 05:30 03/09/21 05:30 Micro: Microbiology 03/06/21 14:57 Urine Culture - Final Urine,Voided A&P Assessment and plan (1) Pneumonia due to COVID-19 virus: Acute hypoxic respiratory failure, acute respiratory distress syndrome, hypoxia secondary to COVID-19 We will moved to ICU -ABG shows pH 7.48, PO2 58.5, bicarb 30.9, PCO2 41.8, on 40% -Currently on heated high flow -Remdesivir day 4 of 5 -Decadron day 4 of 10 -1 dose Actemra March 08, 2021 -Currently on Rocephin and azithromycin -Follow blood cultures, urine cultures, urine bacterial antigens, sputum cultures -Vitamin C, vitamin D, zinc -Budesonide -DuoNeb -Monitor respiratory status closely -BiPAP as needed -High risk of intubation in the next 24 to 48 hours -Lasix 40 mg once -Lovenox for DVT prophylaxis -Full code Status: Acute (2) Hypoxia: Status: Acute (3) Acute respiratory failure with hypoxia: Status: Acute (4) Acute respiratory distress syndrome: Status: Acute Attestations Medical Necessity Statement*: Patient requires hospitalization, for acute hypoxic respiratory failure sec to COVID-19, critical care time spent over 35 minutes Coding Level of Care Code 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
--- NOTE | 2021-03-09 13:03 | PM.CONSULT ---
Providers/Reason For Consult Consulting Physician/Specialty*: Pulmonary critical care medicine Reason for Consult*: Severe COVID-19, ARDS Attending Physician: Luciano Williamson MD Primary Care Provider: Rupali Nicolas APN History of Present Illness History of Present Illness Gregoria Javier is a 55 year old female with a past medical history of hypertension presented to the hospital on March 06 with cough, fever, chills, exertional shortness of breath for 5 days. The patient tested positive for COVID-19. It appears that the patient was going to leave AMA from the emergency room while being on 10 L oxygen initially. In the past 3 days her oxygen requirement has worsened significantly. Currently the patient is on 100% oxygen with high flow nasal cannula and also nonrebreather mask her oxygen saturation is in the high 70s to low 80s primarily. The CT angiogram on hospital admission revealed bilateral groundglass and consolidative lesions consistent with COVID-19. There was no pulmonary embolism. Chest x-ray obtained today revealed worsening compared to before. The patient received a dose of Tocilizumab on March 08. The patient was seen and examined in the ICU. She appears tired, she is complaining of shortness of breath and severe tiredness. I had a conversation with the patient regarding the possibility of supporting her with intubation and mechanical ventilation because of her persistent hypoxemia and the patient agreed with the procedure. I have also discussed the possible risk of intubation with the patient including chance of . The patient is essentially on 200% oxygen and PO2is in the 50s. The patient is expected to desaturate very rapidly. The patient has no evidence of secondary bacterial infection at this time. Her procalcitonin level was normal. She is empirically covered with ceftriaxone and azithromycin. Review of Systems Narrative: Unable to obtain detailed review of system because of clinical condition. Please see the HPI. Medications/Allergies Home Medications Medication Instructions Recorded Confirmed Last Taken Type guaifenesin 600 mg tablet, 600 mg PO Q12H PRN 12/19/19 03/06/21 03/06/21 History extended release 12 hr medroxyprogesterone 2.5 mg tablet 2.5 mg PO QAM 12/19/19 03/06/21 03/06/21 History omeprazole 20 mg tablet,delayed 20 mg PO DAILY 12/19/19 03/06/21 Unknown History release Vitamin D3 1 cap PO DAILY 03/06/21 03/06/21 Unknown History albuterol sulfate [Ventolin HFA] 2 puff INHALATION Q4H PRN 03/06/21 03/06/21 Unknown History ascorbic acid (vitamin C) [Vitamin 500 mg PO DAILY 03/06/21 03/06/21 Unknown History C] aspirin [Aspir-81] 81 mg PO DAILY 03/06/21 03/06/21 Unknown History azelastine 2 spray INTRANASAL BID 03/06/21 03/06/21 Unknown History azithromycin See Rx Instructions .ROUTE .COMPLEX 03/06/21 03/06/21 03/06/21 History dexamethasone 6 mg PO BID 03/06/21 03/06/21 03/06/21 History estradiol 1 mg PO QAM 03/06/21 03/06/21 03/06/21 09:40 History fexofenadine 180 mg PO QAM 03/06/21 03/06/21 03/06/21 History lisinopril 20 mg PO QAM 03/06/21 03/06/21 03/06/21 History olopatadine 1 drp OPHTHALMIC (EYE) DAILY PRN 03/06/21 03/06/21 Unknown History triamterene-hydrochlorothiazid 1 tab PO QAM 03/06/21 03/06/21 03/06/21 History zinc 50 mg PO DAILY 03/06/21 03/06/21 Unknown History Allergies Allergy/AdvReac Type Severity Reaction Status Date / Time Sulfa (Sulfonamide Allergy Intermediate rash Verified 01/15/20 13:17 Antibiotics) Current Medications Generic Name Dose Route Start Last Admin Trade Name Freq PRN Reason Stop Dose Admin Albuterol/Ipratropium 3 ml 03/06/21 17:06 03/09/21 07:43 Ipratropium-Albuterol 3 Ml Neb INHALATION 3 ml QID.RESPIRATORY BINDU Administration Ascorbic Acid 500 mg 03/06/21 18:00 03/09/21 08:19 Ascorbic Acid 500 Mg Tablet PO 500 mg BID BINDU Administration Aspirin 81 mg 03/07/21 09:00 03/09/21 08:19 Aspirin 81 Mg Ec Tablet PO 81 mg DAILY BINDU Administration Budesonide 0.5 mg 03/06/21 20:00 03/09/21 07:43 Budesonide 0.5 Mg/2 Ml Neb INHALATION 0.5 mg BID.RESPIRATORY BINDU Administration Dexamethasone 6 mg 03/07/21 14:15 03/08/21 13:41 Dexamethasone 10 Mg/Ml Inj IVP 6 mg Q24H BINDU Administration Docusate Sodium 100 mg 03/06/21 18:00 03/09/21 08:19 Docusate Sodium 100 Mg Capsule PO 100 mg BID BINDU Administration Enoxaparin Sodium 40 mg 03/06/21 18:00 03/08/21 17:03 Enoxaparin 40 Mg/0.4 Ml Syringe SUBCUT 40 mg Q24H BINDU Administration Famotidine 20 mg 03/06/21 18:00 03/09/21 08:19 Famotidine 20 Mg Tablet PO 20 mg BID BINDU Administration Remdesivir 100 mg/ Sodium 100 mls @ 100 mls/hr 03/07/21 18:00 03/08/21 19:01 Chloride IV 03/10/21 18:59 Infused Q24H BINDU Infusion Ceftriaxone Sodium 1,000 mg/ 50 mls @ 100 mls/hr 03/08/21 09:45 03/08/21 15:30 Sodium Chloride IV Infused Q24H BINDU Infusion Protocol Azithromycin 500 mg/ Sodium 250 mls @ 250 mls/hr 03/08/21 09:45 03/09/21 10:29 Chloride IV 250 mls/hr Q24H BINDU Administration Protocol Vitamin D 1,000 unit 03/07/21 09:00 03/09/21 08:19 Cholecalciferol (Vitamin D3) 1,000 Unit Tablet PO 1,000 unit DAILY BINDU Administration Zinc Gluconate 50 mg 03/07/21 09:00 03/09/21 08:19 Zinc Gluconate 50 Mg Tablet PO 50 mg DAILY BINDU Administration PFSH Acute PFSH: Medical History Abnormal uterine bleeding (AUB) Pelvic pain Surgical History H/O section H/O tubal ligation S/P cholecystectomy S/P endometrial ablation 2010 Family History Father Diabetes Hyperlipidemia Hypertension Heart disease Mother Hyperlipidemia Diabetes Hypertension Heart disease Family/Other Breast cancer paternal aunt Uterine cancer maternal cousin Denies family history of Colon cancer Ovarian cancer Clotting disorder Anesthesia complication Bleeding disorder Thyroid condition Stroke Social History Smoking and tobacco status: never smoked Alcohol intake: never Vitals/I&O/Wt Last Vital Signs Temp 98.7 F 03/09/21 11:15 Pulse 88 03/09/21 12:45 Resp 13 03/09/21 12:45 BP 94/62 03/09/21 12:45 Pulse Ox 83 L 03/09/21 12:45 03/08/21 03/09/21 03/09/21 22:59 06:59 14:59 Intake Total 780 / 880 240 / 240 Output Total 300 / 2800 500 / 3300 Balance 480 / -1920 -500 / -2420 240 / 240 Weight last 48 hrs Weight 255 lb 12.8 oz Physical Exam Narrative: EXAM NARRATIVE: General: Patient is awake alert and oriented, appears to be tired, tachypneic Neck: No JVD Respiratory: Auscultation: Reduced breath sound bilaterally, no crackles wheezing or rhonchi Cardiovascular: Regular rate and rhythm, S1-S2 present, no murmur, no peripheral edema. Abdomen: Soft, nontender, distended from obesity, positive Musculoskeletal: No obvious joint deformity, no evidence of erythema nodosum or multiforme. Neuro: Patient is awake alert and oriented, able to move all extremities, no focal deficit Data Micro: Micro: Microbiology 03/06/21 14:57 Urine Culture - Fi nal Urine,Voided Other Data: Attestation for Other Data: I personally reviewed and interpreted the following: Other data: I have reviewed the patient's laboratory, microbiology cardiology data. Please see the HPI for details A&P Assessment and plan (1) Acute respiratory distress syndrome: This is a 55-year-old lady with severe COVID-19. Her oxygen requirement has progressively gotten worse since the patient was hospitalized. Currently the patient is on 100% high flow nasal cannula and additional nonrebreather mask. Her saturation is in the high 70s to low 80s. The patient is tired. Complaining of shortness of breath and is tachypneic. Chest x-ray today revealed worsening compared to the admission chest x-ray. There is no evidence of pulmonary embolism on the initial CT angiogram. At this point, given the patient's progressive worsening the chances of her developing severe hypoxemia and subsequent cardiac arrest is a distinct possibility. I have discussed this in detail with the patient and she has agreed to proceed with intubation and mechanical ventilation. I have also explained to her that the intubation does carry a significant risk of hypoxemia, hypotension and even possible . The patient's PO2 with the current oxygen supplementation is in the mid 50s. She does not have any apneic reserve and is likely to desaturate profoundly. Will proceed with intubation. I will discuss this with her . The patient has received a dose of Tocilizumab on March 08. Currently she is on remdesivir, dexamethasone and empirically covered with ceftriaxone and azithromycin. After the patient is intubated, she will be proned and paralyzed. 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
[2021-03-09] MEDS: propofol 1,000 MG/100 ML INJ 13.92 MG IV (13:51)
[2021-03-09] MEDS: cisatracurium 100 MG in sodium chloride 0.9% 50 ML IV ×2 (13:55→17:13)
--- NOTE | 2021-03-09 14:21 | PC.NURSE ---
Patient experiences respiratory distress and was intubated by Dr. Reid at 1351. Assisted by 1RT and 2 RN. No complications. Medications administered per APR.
--- NOTE | 2021-03-09 14:28 | XRR_ITS ---
PROCEDURE INFORMATION: Exam: XR Chest Exam date and time: 03/09/2021 2:28 PM Age: 55 years old Clinical indication: Device placement; Chest tube; Additional info: Tube placement TECHNIQUE: Imaging protocol: XR of the chest. Views: 1 view. COMPARISON: CR (CHEST, ) 03/09/2021 8:44 AM FINDINGS: Tubes, catheters and devices: Intubation with tip 2.9 cm above the olive. Gastric tube with tip in the mid stomach. Lungs: Patchy airspace opacities are unchanged in both lungs. Pleural spaces: Unremarkable. No pleural effusion. No pneumothorax. Heart/Mediastinum: Unremarkable. No cardiomegaly. Bones/joints: Unremarkable. XR/XR chest 1V portable [id number] IMPRESSION: 1. Stable multilobar pneumonia, post intubation.
[2021-03-09] MEDS: succinylcholine 20 mg/mL SDV 10mL 150 MG IVP (14:36)
--- NOTE | 2021-03-09 14:36 | P.PCN_ITS ---
Procedure/Consent Time out: Time Out Performed: Yes Consent: Consent for Procedure: Consent obtained from patient (Obtained verbally) and Consent obtained from other (indicate) () Procedure Narrative: Name of the procedure: Endotracheal intubation. Indication: Hypoxic respiratory failure. Medications: Etomidate 30 mg, succinylcholine 150 mg Procedure: The patient was positioned optimally. The patient was oxygenated with 100% oxygen with high flow nasal cannula and nonrebreather mask. After appropriate medications were given, the video laryngoscopy blade was introduced and advanced till vocal cords were visualized. The endotracheal tube was advanced through the vocal cords under direct visualization. There was fogging of the ET tube, positive change in end-tidal CO2 monitor, bilateral ches t rise, bilateral positive breath sound. The ET tube was secured at 24 cm at the lips. Complications: There was no immediate complications. Chest x-ray: Pending Acute Procedures Epistaxis Control: Time out performed: Yes
[2021-03-09 15:47] LABS: ABG PCO2 45.3 mmHg (35-45); ABG PH Result 7.44 (7.35-7.45); Alveolar-Arterial Oxygen Gradi 72.1 mmHg (5-10); Arterial Blood Gas Hematocrit 46.7 % (37-47); Base Excess ABG 5.9 mmol/L (-2.0-2.0); Blood Gas Allen Test Pos; Blood Gas Operator Identificat GD; Blood Gas Sample Site Radial, left; Blood Gas Sample Type Arterial; Carboxyhemoglobin 0.1 %THgb (0.4-20.1); HGB O2 Sat 95.8 % (95-100); Ionized Calcium Level - ABG 1.1 mmol/L (1.1-1.4); Methemoglobin 0.7 % (0.4-1.5); Oxygen Device VENT; Oxygen Saturation ABG 96.6; PO2 ABG 97.2 mmHg (80.0-100.0); Potassium Level - ABG 3.2 mmol/L (3.5-5.0); Total Hemoglobin 15.2 g/dL (12-16)
[2021-03-09] MEDS: dexamethasone 10 mg/mL INJ 6 MG IVP (15:51)
[2021-03-09] MEDS: propofol 1,000 MG/100 ML INJ 34.81 MG IV ×2 (16:53→19:13)
[2021-03-09 17:37] LABS: Glucose Point of Care 196 mg/dL (70-110)
[2021-03-09] MEDS: enoxaparin 40 mg/0.4 mL Syringe SUBCUT (17:56)
[2021-03-09] MEDS: remdesivir 100 MG in sodium chloride 0.9% (100 ml) 80 ML IV (17:57)
--- NOTE | 2021-03-09 19:00 | PC.NURSE ---
MAR Upon assessment, Nimbex running at 1 mcg/kg/min and Versed running at 4 mg/hr while MAR displays different rates. MAR updated to reflect administration.
--- NOTE | 2021-03-09 19:27 | PC.NURSE ---
Proned at 1930 assisted by 4 rn and 1 rt. Uneventful.
--- NOTE | 2021-03-09 19:35 | PC.NURSE ---
Prone Patient proned at 1930. Patient sedated and paralyzed, restraints removed. To be placed back on once supine.
--- NOTE | 2021-03-09 21:00 | PC.NURSE ---
Family Update , William, called at 2100 and at 0225 for update on patient. Blood thinning medication and oxygen requirements discussed. verbalized understanding and stated no further questions.
[2021-03-09] MEDS: propofol 1,000 MG/100 ML INJ 41.77 MG IV (22:23)
[2021-03-09 23:01] LABS: Glucose Point of Care 261 mg/dL (70-110)
[2021-03-09] MEDS: insulin lispro 100 unit/1 mL SUBCUT (23:28)
[2021-03-10] VITALS (96 sets, daily range): BP systolic 89–149; BP diastolic 58–89; PULSE 56–98; RESP 16–20; TEMP 36.3–37.1; O2SAT 89–98; BMI 35.6
[2021-03-10] MEDS: propofol 1,000 MG/100 ML INJ 41.77 MG IV ×8 (03:05→22:16)
--- NOTE | 2021-03-10 03:42 | PC.NURSE ---
Insulin Dr. Chin notified of patient blood sugar of 261, daily dexamethasone administration, and no insulin sliding scale order in place. Order received for insulin sliding scale. Orders carried out per APR.
[2021-03-10 03:46] LABS: ABG PCO2 46.2 mmHg (35-45); ABG PH Result 7.45 (7.35-7.45); Arterial Blood Gas Hematocrit 45.5 % (37-47); Base Excess ABG 6.7 mmol/L (-2.0-2.0); Blood Gas Allen Test Pos; Blood Gas Sample Site Radial, left; Blood Gas Sample Type Arterial; HCO3 ABG 31.9 mmol/L (22-26); Oxygen Device VENT; PO2 ABG 73.8 mmHg (80.0-100.0)
[2021-03-10 04:25] LABS: Glucose Point of Care 160 mg/dL (70-110)
[2021-03-10] MEDS: insulin lispro 100 unit/1 mL SUBCUT ×4 (04:29→23:53)
--- NOTE | 2021-03-10 04:48 | PC.NURSE ---
Temperature Patient temperature 97.4F axillary. Room temperature increased and warm blankets applied to patient.
[2021-03-10 04:56] LABS: Basophils % 0.2 %; Hematocrit 43.5 % (37.0-47.0); Hemoglobin 14.4 g/dL (11.5-15.3); Lymphocytes # 1.3 10^3/uL (0.8-4.8); Lymphocytes % 14.2 %; Mean Corpuscular HGB Conc 33.1 g/dL (30.0-36.0); Mean Corpuscular Hemoglobin 28.4 pg (28.0-34.0); Mean Corpuscular Volume 85.8 fl (81-99); Mean Platelet Volume 9.3 fL (7.4-10.4); Monocytes # 0.4 10^3/uL (0.2-0.9); Neutrophils # 7.23 10^3/uL (1.8-7.7); Neutrophils % 80.5 %; Nucleated Red Blood Cells % 0 %; Platelet Count 361 10^3/cmm (130-400); Red Blood Count 5.07 10^6/uL (4.1-5.3); Red Cell Distribution Width 12.4 % (12.1-15.1)
[2021-03-10 05:14] LABS: Lactate (Lactic Acid level) 1.9 mmol/L (0.5-2.2)
[2021-03-10 05:17] LABS: INR 1.07 (0.8-1.2)
[2021-03-10 05:22] LABS: NT Pro B Type Natriuretic Pept 75 pg/mL (0-125); Procalcitonin 0.03 ng/mL (0-0.5)
[2021-03-10] MEDS: cisatracurium 100 MG in sodium chloride 0.9% 50 ML 5.22 MG IV (05:30)
[2021-03-10 05:35] LABS: Alanine Aminotransferase 24 U/L (0-33); Albumin Level 2.8 g/dL (3.5-5.2); Alkaline Phosphatase 57 IU/L (35-105); Anion Gap 17.8 (5-19); Aspartate Amino Transferase 16 U/L (0-32); Blood Urea Nitrogen 14 mg/dL (6-20); C Reactive Protein 22.5 mg/L (0.0-4.9); Carbon Dioxide 24 mmol/L (22-29); Chloride 96 mmol/L (98-107); Creatine Phosphokinase 62 U/L (26-192); Globulin 3.3 g/dL (1.3-4.6); Glomerular Filtration Rate 128.1 mL/min (90-130); Glucose 167 mg/dL (65-115); Magnesium 2.5 mg/dL (1.7-2.3); Osmolality Calculated 282 mOsm/kg (285-295); Phosphorus 3.6 mg/dL (2.5-4.5); Potassium 3.8 mmol/L (3.5-5.1); Sodium 134 mmol/L (136-145); Total Bilirubin 0.3 mg/dL (0.15-1.2); Total Protein 6.1 g/dL (6.6-8.7)
--- NOTE | 2021-03-10 06:35 | PC.NURSE ---
BIS/TO4 BIS Train [facility] 1999 [phone] 50 [phone] 41 [phone] 47 [phone]
--- NOTE | 2021-03-10 07:00 | XRR_ITS ---
PROCEDURE INFORMATION: Exam: XR Chest Exam date and time: 03/10/2021 7:00 AM Age: 55 years old Clinical indication: Shortness of breath; Additional info: SOB, PT to be flipped at 11:30 TECHNIQUE: Imaging protocol: XR of the chest. Views: 1 view. Total images: 1 COMPARISON: CR XR chest 1V portable [id number] 03/09/2021 3:21 PM FINDINGS: Tubes, catheters and devices: Endotracheal tube in satisfactory position tip above the olive. Nasogastric tube tip below the diaphragm at the level of the body of the stomach. Lungs: No visible significant interval change patches of bilateral ground-glass interstitial lung disease of active interstitial pneumonitis. Suspect Covid-19 pneumonitis. Pleural spaces: No visible pleural effusion. No pneumothorax. Heart/Mediastinum: Cardiac structures and configuration with mild arteriosclerosis. Bones/joints: Unremarkable. Soft tissues: Heavy body habitus. XR/XR chest 1V portable [id number] IMPRESSION: No significant interval change cardiopulmonary status radiographically.
[2021-03-10 07:33] LABS: Glucose Point of Care 136 mg/dL (70-110)
[2021-03-10] MEDS: ipratropium-albuterol 3 mL Neb INHALATION ×4 (08:24→20:06)
[2021-03-10] MEDS: budesonide 0.5 mg/2 mL Neb INHALATION ×2 (08:24→20:06)
[2021-03-10] MEDS: azithromycin 500 MG in sodium chloride 0.9% 250 ML 250 MG IV (09:34)
[2021-03-10] MEDS: cefTRIAXone 1,000 MG in sodium chloride 0.9% (plus) 50 ML 100 MG IV (09:34)
[2021-03-10] MEDS: aspirin 81 mg EC Tablet PO (09:34)
[2021-03-10] MEDS: famotidine 20 mg Tablet PO ×2 (09:34→19:12)
[2021-03-10] MEDS: zinc gluconate 50 mg Tablet PO (09:34)
[2021-03-10] MEDS: ascorbic acid 500 mg Tablet PO ×2 (09:35→19:11)
--- NOTE | 2021-03-10 12:11 | PC.NURSE ---
Family member- grandson- arrived to brick picker patients cellphone. Phone taken home with family.
[2021-03-10] MEDS: cholecalciferol (vitamin D3) 1,000 unit Tablet 1000 UNIT PO (15:11)
[2021-03-10 15:18] LABS: Glucose Point of Care 154 mg/dL (70-110)
[2021-03-10] MEDS: dexamethasone 10 mg/mL INJ 6 MG IVP (15:22)
--- NOTE | 2021-03-10 15:29 | P.PN_ITS ---
Subjective Subjective: Interval history: Patient was intubated yesterday afternoon due to worsening respiratory status, worsening respiratory failure, intubated, sedated, placed in prone positioning Remains intubated, sedated, proned this morning, afebrile, normotensive Vitals/I&O/Wt Last Vital Signs Temp 98.7 F 03/10/21 07:00 Pulse 82 03/10/21 14:00 Resp 16 03/10/21 13:51 BP 139/89 03/10/21 14:00 Pulse Ox 93 03/10/21 14:00 03/10/21 03/10/21 03/10/21 06:59 14:59 22:59 Intake Total 347.508 / 1248.284 797.435 / 797.435 81.733 / 879.168 Output Total 450 / 2300 Balance -102.492 / -1051.716 797.435 / 797.435 81.733 / 879.168 Weight last 48 hrs Weight 109.452 kg Physical Exam Narrative: EXAM NARRATIVE: Intubated, sedated and prone positioning Const: COMMON NORMALS: no acute distress Resp: COMMON NORMALS: normal respiratory effort, No retractions, No use of accessory muscles and clear to auscultation bilaterally AUSCULTATION: clear to auscultation bilaterally Cardio: COMMON NORMALS: regular rate, regular rhythm, S1 normal heart sound present and S2 normal heart sound present RATE: regular rate RHYTHM: regular rhythm HEART SOUNDS: S1 normal heart sound present and S2 normal heart sound present GI: COMMON NORMALS: Normal to inspection, nondistended, normoactive bowel sounds present, Soft to palpation and non-tender PALPATION: Yes Soft to palpation Extremity: COMMON NORMALS: no pedal edema Urinary Catheter Management^: [place]: Cath Placed During This Visit: no Reason for Continuing Indwelling Catheter: Accurate Measurement of Urinary Output in Critically Ill Patients Data : 03/10/21 04:16 03/10/21 04:16 Micro: Microbiology 03/09/21 17:00 Gram Stain - Final Sputum - Endotracheal Tube Aspirate Sputum Culture - Preliminary 03/09/21 14:05 Gram Stain - Final Sputum - Endotracheal Tube Aspirate Sputum Culture - Preliminary A&P Assessment and plan (1) Pneumonia due to COVID-19 virus: Acute hypoxic respiratory failure, acute respiratory distress syndrome, hypoxia secondary to COVID-19 -Currently in ICU -Intubated, sedated, mechanical ventilation -Fentanyl Versed propofol for sedation -Currently in prone position 16 hours -Supine -ABG shows 7.45, PCO2 46.2, PO2 73.8, PEEP of 10, FiO2 70% -Currently on heated high flow -Remdesivir day 5 of 5 -Decadron day 4 of 10 -1 dose Actemra March 08, 2021 -Currently on Rocephin and azithromycin -Follow blood cultures, urine cultures, urine bacterial antigens, sputum cultures -Vitamin C, vitamin D, zinc -Budesonide -DuoNeb -Monitor respiratory status closely -BiPAP as needed -Start trickle tube feeds once supine -Lovenox for DVT prophylaxis -Full code Status: Acute (2) Hypoxia: Status: Acute (3) Acute respiratory failure with hypoxia: Status: Acute (4) Acute respiratory distress syndrome: Status: Acute Attestations Medical Necessity Statement*: Patient requires hospitalization due to pneumonia secondary COVID-19, acute respiratory distress syndrome Coding Level of Care Code Acute 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
--- NOTE | 2021-03-10 15:31 | P.PN_ITS ---
Subjective Subjective: Interval history: The patient is doing well. Currently she is prone and paralyzed. She is on 50% FiO2. Medications: Reviewed: Yes Vitals/I&O/Wt Last Vital Signs Temp 98.7 F 03/10/21 07:00 Pulse 82 03/10/21 14:00 Resp 16 03/10/21 13:51 BP 139/89 03/10/21 14:00 Pulse Ox 93 03/10/21 14:00 03/10/21 03/10/21 03/10/21 06:59 14:59 22:59 Intake Total 347.508 / 1248.284 797.435 / 797.435 81.733 / 879.168 Output Total 450 / 2300 Balance -102.492 / -1051.716 797.435 / 797.435 81.733 / 879.168 Weight last 48 hrs Weight 241 lb 4.8 oz Physical Exam Narrative: EXAM NARRATIVE: General: The patient is intubated, sedated and paralyzed Respiratory: Auscultation: Reduced breath sound bilaterally posteriorly, no crackles wheezing or rhonchi Cardiovascular: Unable to examine heart sounds, no peripheral edema Abdomen: Sluggish bowel sound Musculoskeletal: No obvious joint deformity Neuro: Patient is intubated sedated and paralyzed Urinary Catheter Management^: [place]: Cath Placed During This Visit: no Reason for Continuing Indwelling Catheter: Accurate Measurement of Urinary Output in Critically Ill Patients Data : 03/10/21 04:16 03/10/21 04:16 Micro: Microbiology 03/09/21 17:00 Gram Stain - Final Sputum - Endotracheal Tube Aspirate Sputum Culture - Preliminary 03/09/21 14:05 Gram Stain - Final Sputum - Endotracheal Tube Aspirate Sputum Culture - Preliminary Attestation for Other Data: I personally reviewed and interpreted the following: Other data: I have reviewed the patient's laboratory, microbiologic and radiologic data A&P Assessment and plan (1) Acute respiratory distress syndrome: This is a 55-year-old lady with severe COVID-19. She has developed ARDS secondary to COVID-19. The patient is currently intubated, paralyzed and sedated. Her oxygen requirement has come down to 50% being prone. When the patient is supine if her oxygen requirement stays 60% or less, the patient does not need to be proned again. At that point, we will get rid of the paralytics and reduce the Versed drip to eventually discontinued. I believe in the next 48 hours the patient is going to be able to get extubated unless there is any new developments. She is currently empirically covered with antibiotic. No evidence of secondary bacterial infection at this time. The endotracheal aspirate culture has been negative so far. Status: Acute (2) Pneumonia due to COVID-19 virus: See above Status: Acute Attestations Medical Necessity Statement*: Will defer to the primary team Coding Level of Care Code Acute Registration Rep for [facility] F[facility] Diagnoses Acute respiratory distress syndrome J80 Pneumonia due to COVID-19 virus U07.1; J12.82
--- NOTE | 2021-03-10 17:55 | PC.NURSE ---
Patient supined. 1RT 4 RN and 1GN. Uneventful. Patient resting comfortably.
[2021-03-10 19:03] LABS: Glucose Point of Care 220 mg/dL (70-110)
[2021-03-10] MEDS: enoxaparin 40 mg/0.4 mL Syringe SUBCUT (19:13)
[2021-03-10] MEDS: remdesivir 100 MG in sodium chloride 0.9% (100 ml) 80 ML IV (19:45)
[2021-03-10 22:14] LABS: Glucose Point of Care 231 mg/dL (70-110)
[2021-03-11] VITALS (65 sets, daily range): BP systolic 87–147; BP diastolic 60–89; PULSE 68–107; RESP 15–20; TEMP 36.9–37.2; O2SAT 87–95; BMI 36.7
[2021-03-11 00:07] LABS: Glucose Point of Care 203 mg/dL (70-110)
[2021-03-11] MEDS: propofol 1,000 MG/100 ML INJ 41.77 MG IV ×5 (00:45→10:53)
--- NOTE | 2021-03-11 02:08 | PC.NURSE ---
Family Update , William, called and received update on patient. Oxygen requirements, positioning, and sedation were discussed. verbalized understanding and stated no further questions.
[2021-03-11 03:52] LABS: ABG PCO2 49.1 mmHg (35-45); ABG PH Result 7.44 (7.35-7.45); Arterial Blood Gas Hematocrit 43.4 % (37-47); Base Excess ABG 7.3 mmol/L (-2.0-2.0); Blood Gas Allen Test Pos; Blood Gas Sample Site Radial, right; Blood Gas Sample Type Arterial; Oxygen Device VENT; PO2 ABG 67.8 mmHg (80.0-100.0)
[2021-03-11 04:52] LABS: Glucose Point of Care 137 mg/dL (70-110)
[2021-03-11 05:07] LABS: Basophils % 0.3 %; Eosinophils % 0.3 %; Hematocrit 40.7 % (37.0-47.0); Hemoglobin 13.5 g/dL (11.5-15.3); Lymphocytes # 1.2 10^3/uL (0.8-4.8); Lymphocytes % 12.2 %; Mean Corpuscular HGB Conc 33.2 g/dL (30.0-36.0); Mean Corpuscular Hemoglobin 28.3 pg (28.0-34.0); Mean Corpuscular Volume 85.3 fl (81-99); Mean Platelet Volume 9.9 fL (7.4-10.4); Monocytes # 0.7 10^3/uL (0.2-0.9); Monocytes % 6.6 %; Neutrophils # 7.84 10^3/uL (1.8-7.7); Nucleated Red Blood Cells % 0 %; Platelet Count 358 10^3/cmm (130-400); Red Blood Count 4.77 10^6/uL (4.1-5.3); Red Cell Distribution Width 12.1 % (12.1-15.1); White Blood Count 10.1 10^3/uL (4.0-10.0)
[2021-03-11 05:22] LABS: INR 0.96 (0.8-1.2)
[2021-03-11 05:23] LABS: Lactate (Lactic Acid level) 2.5 mmol/L (0.5-2.2)
[2021-03-11 05:41] LABS: NT Pro B Type Natriuretic Pept 31 pg/mL (0-125); Procalcitonin 0.02 ng/mL (0-0.5)
[2021-03-11 05:47] LABS: Glucose Point of Care 119 mg/dL (70-110)
[2021-03-11 05:53] LABS: Alanine Aminotransferase 24 U/L (0-33); Albumin Level 2.8 g/dL (3.5-5.2); Alkaline Phosphatase 51 IU/L (35-105); Aspartate Amino Transferase 26 U/L (0-32); Blood Urea Nitrogen 10 mg/dL (6-20); C Reactive Protein 11.2 mg/L (0.0-4.9); Calcium 7.7 mg/dL (8.5-10.5); Carbon Dioxide 26 mmol/L (22-29); Chloride 94 mmol/L (98-107); Globulin 2.6 g/dL (1.3-4.6); Glomerular Filtration Rate 165.7 mL/min (90-130); Glucose 117 mg/dL (65-115); Magnesium 2.5 mg/dL (1.7-2.3); Osmolality Calculated 276 mOsm/kg (285-295); Phosphorus 2.9 mg/dL (2.5-4.5); Sodium 133 mmol/L (136-145); Total Bilirubin 0.2 mg/dL (0.15-1.2); Total Protein 5.4 g/dL (6.6-8.7)
[2021-03-11 05:54] LABS: Anion Gap 17.1 (5-19); Potassium 4.1 mmol/L (3.5-5.1)
[2021-03-11 06:10] LABS: Creatine Phosphokinase 1041 U/L (26-192)
[2021-03-11 08:04] LABS: Glucose Point of Care 104 mg/dL (70-110)
[2021-03-11] MEDS: ipratropium-albuterol 3 mL Neb INHALATION ×4 (08:27→19:49)
[2021-03-11] MEDS: budesonide 0.5 mg/2 mL Neb INHALATION ×2 (08:27→19:49)
[2021-03-11] MEDS: cholecalciferol (vitamin D3) 1,000 unit Tablet 1000 UNIT PO (08:32)
[2021-03-11] MEDS: zinc gluconate 50 mg Tablet PO (08:32)
[2021-03-11] MEDS: famotidine 20 mg Tablet PO ×2 (08:33→18:37)
[2021-03-11] MEDS: ascorbic acid 500 mg Tablet PO ×2 (08:33→18:37)
[2021-03-11] MEDS: aspirin 81 mg EC Tablet PO (08:33)
[2021-03-11] MEDS: cefTRIAXone 1,000 MG in sodium chloride 0.9% (plus) 50 ML 100 MG IV (08:38)
[2021-03-11] MEDS: azithromycin 500 MG in sodium chloride 0.9% 250 ML 250 MG IV (08:40)
--- NOTE | 2021-03-11 08:43 | PC.NUTR ---
TF consult received. With high rate of Propofol contributing 1100 kcals, recommend consideration of goal rate for Jevity 1.2 @ 20 ml/hr with FW flushes a bit higher at 150 mls Q4H. Details in RD assessment.
--- NOTE | 2021-03-11 10:08 | PC.NURSE ---
Left forearm IV not present upon this mornings assessment.
[2021-03-11 11:10] LABS: Glucose Point of Care 99 mg/dL (70-110)
[2021-03-11] MEDS: cisatracurium 100 MG in sodium chloride 0.9% 50 ML 6.96 MG IV (11:41)
--- NOTE | 2021-03-11 11:44 | PC.NURSE ---
Tube feeding stopped at Approximately 1015. Patient proned at 1140 by 3RN 1GN and 1 RT. Uneventful.
[2021-03-11] MEDS: propofol 1,000 MG/100 ML INJ 34.81 MG IV ×2 (13:20→16:25)
[2021-03-11] MEDS: dexamethasone 10 mg/mL INJ 6 MG IVP (15:06)
--- NOTE | 2021-03-11 16:19 | PM.PN ---
Subjective Subjective: Interval history: Patient was seen this morning, continues to be supine, intubated, sedated, mechanical ventilation afebrile overnight, normotensive, on 60% FiO2 Vitals/I&O/Wt Last Vital Signs Temp 98.8 F 03/11/21 13:30 Pulse 82 03/11/21 15:29 Resp 18 03/11/21 14:21 BP 127/88 03/11/21 14:30 Pulse Ox 93 03/11/21 14:30 03/11/21 03/11/21 03/11/21 06:59 14:59 22:59 Intake Total 308.1 / 1807.193 528.273 / 528.273 Output Total 450 / 1100 Balance -141.9 / 707.193 528.273 / 528.273 Weight last 48 hrs Weight 112.808 kg Weight 109.452 kg Physical Exam Narrative: EXAM NARRATIVE: Remains intubated, sedated, mechanical ventilation Const: COMMON NORMALS: no acute distress Resp: COMMON NORMALS: normal respiratory effort, No retractions, No use of accessory muscles and clear to auscultation bilaterally AUSCULTATION: clear to auscultation bilaterally Cardio: COMMON NORMALS: regular rate, regular rhythm, S1 normal heart sound present and S2 normal heart sound present RATE: regular rate RHYTHM: regular rhythm HEART SOUNDS: S1 normal heart sound present and S2 normal heart sound present GI: COMMON NORMALS: Normal to inspection, nondistended, normoactive bowel sounds present, Soft to palpation and non-tender PALPATION: Yes Soft to palpation Extremity: COMMON NORMALS: no pedal edema Urinary Catheter Management^: [place]: Cath Placed During This Visit: no Reason for Continuing Indwelling Catheter: Accurate Measurement of Urinary Output in Critically Ill Patients Data : 03/11/21 04:37 03/11/21 04:37 Micro: Microbiology 03/06/21 16:04 Blood Culture - Final Blood NO GROWTH AFTER 5 DAYS A&P Assessment and plan (1) Pneumonia due to COVID-19 virus: Acute hypoxic respiratory failure, acute respiratory distress syndrome, hypoxia secondary to COVID-19 -Currently in ICU -Intubated, sedated, mechanical ventilation -Fentanyl Versed propofol for sedation -Completed 1 proning session -ABG shows pH 7.44, PCO2 49.1, PO2 67.8, bicarb 33 -Remdesivir day 5 of 5 -Decadron day 5 of 10 -1 dose Actemra March 08, 2021 -Currently on Rocephin and azithromycin -Follow blood cultures, urine cultures, urine bacterial antigens, sputum cultures -Vitamin C, vitamin D, zinc -Budesonide -DuoNeb -Monitor respiratory status closely -BiPAP as needed -On trickle tube feeds -Lovenox for DVT prophylaxis -Full code Status: Acute (2) Hypoxia: Status: Acute (3) Acute respiratory failure with hypoxia: Status: Acute (4) Acute respiratory distress syndrome: Status: Acute Attestations Medical Necessity Statement*: Patient requires hospitalization for COVID-19 pneumonia, critical care time spent over 35 minutes Coding Level of Care Code Acute Manager Hiv [facility] Diagnoses Pneumonia due to COVID-19 virus U07.1; J12.82 Hypoxia R09.02 Acute respiratory failure with hypoxia J96.01 Acute respiratory distress syndrome J80
[2021-03-11 16:35] LABS: Glucose Point of Care 135 mg/dL (70-110)
[2021-03-11] MEDS: polyethylene glycol 3350 Pkt 17 gm PO (16:35)
[2021-03-11] MEDS: enoxaparin 40 mg/0.4 mL Syringe SUBCUT (18:38)
[2021-03-11] MEDS: propofol 1,000 MG/100 ML INJ 31.33 MG IV ×2 (20:00→23:38)
[2021-03-11 22:22] LABS: Glucose Point of Care 242 mg/dL (70-110)
[2021-03-11] MEDS: insulin lispro 100 unit/1 mL SUBCUT (22:22)
--- NOTE | 2021-03-11 22:45 | PC.NURSE ---
Family Update Called , William, and gave patient status update. verbalized understanding. No further questions stated.
[2021-03-12] VITALS (63 sets, daily range): BP systolic 90–132; BP diastolic 59–95; PULSE 66–108; RESP 16–20; TEMP 36.3–37.6; O2SAT 87–97; BMI 36.6
[2021-03-12] MEDS: propofol 1,000 MG/100 ML INJ 31.33 MG IV (03:09)
[2021-03-12] MEDS: cisatracurium 100 MG in sodium chloride 0.9% 50 ML 6.96 MG IV (03:37)
[2021-03-12 04:56] LABS: ABG PH Result 7.44 (7.35-7.45); Blood Gas Allen Test Pos; Blood Gas Sample Type Arterial
[2021-03-12 04:57] LABS: Blood Gas Sample Site Radial, right
[2021-03-12 04:57] LABS: Glucose Point of Care 131 mg/dL (70-110)
[2021-03-12 05:04] LABS: Basophils % 0.3 %; Eosinophils # 0.1 10^3/uL (0.0-0.8); Eosinophils % 0.5 %; Hematocrit 41.3 % (37.0-47.0); Hemoglobin 13.7 g/dL (11.5-15.3); Lymphocytes # 1.7 10^3/uL (0.8-4.8); Lymphocytes % 14.9 %; Mean Corpuscular HGB Conc 33.2 g/dL (30.0-36.0); Mean Corpuscular Hemoglobin 28.2 pg (28.0-34.0); Mean Corpuscular Volume 85.2 fl (81-99); Mean Platelet Volume 9.1 fL (7.4-10.4); Monocytes # 0.9 10^3/uL (0.2-0.9); Monocytes % 7.8 %; Neutrophils # 8.28 10^3/uL (1.8-7.7); Neutrophils % 70.9 %; Nucleated Red Blood Cells % 0 %; Platelet Count 406 10^3/cmm (130-400); Red Blood Count 4.85 10^6/uL (4.1-5.3); Red Cell Distribution Width 12.1 % (12.1-15.1); White Blood Count 11.7 10^3/uL (4.0-10.0)
[2021-03-12 05:29] LABS: Alanine Aminotransferase 22 U/L (0-33); Albumin Level 2.8 g/dL (3.5-5.2); Alkaline Phosphatase 50 IU/L (35-105); Anion Gap 12.2 (5-19); Aspartate Amino Transferase 26 U/L (0-32); Blood Urea Nitrogen 11 mg/dL (6-20); C Reactive Protein 6.3 mg/L (0.0-4.9); Calcium 7.5 mg/dL (8.5-10.5); Carbon Dioxide 29 mmol/L (22-29); Chloride 95 mmol/L (98-107); Globulin 2.6 g/dL (1.3-4.6); Glomerular Filtration Rate 165.7 mL/min (90-130); Glucose 146 mg/dL (65-115); Magnesium 2.4 mg/dL (1.7-2.3); Osmolality Calculated 276 mOsm/kg (285-295); Phosphorus 2.6 mg/dL (2.5-4.5); Potassium 4.2 mmol/L (3.5-5.1); Sodium 132 mmol/L (136-145); Total Bilirubin 0.2 mg/dL (0.15-1.2); Total Protein 5.4 g/dL (6.6-8.7)
[2021-03-12 05:33] LABS: INR 0.98 (0.8-1.2)
[2021-03-12 05:37] LABS: Slide Review Slide Review Perform
[2021-03-12 05:48] LABS: NT Pro B Type Natriuretic Pept 69 pg/mL (0-125); Procalcitonin 0.03 ng/mL (0-0.5)
[2021-03-12 06:09] LABS: Creatine Phosphokinase 996 U/L (26-192)
[2021-03-12] MEDS: propofol 1,000 MG/100 ML INJ 34.81 MG IV ×5 (06:48→16:53)
--- NOTE | 2021-03-12 07:05 | PC.NURSE ---
Supine Patient supined at 0540. 4 nurses and RT assisted in turn. Uneventful. Nimbex paused, wrist restraints reapplied.
[2021-03-12 07:18] LABS: ABG PCO2 53.3 mmHg (35-45); Arterial Blood Gas Hematocrit 23.1 % (37-47); Base Excess ABG -13.5 mmol/L (-2.0-2.0); Blood Gas Operator Identificat Anonymous; HCO3 ABG 15.7 mmol/L (22-26); PO2 ABG 68.3 mmHg (80.0-100.0)
[2021-03-12] MEDS: budesonide 0.5 mg/2 mL Neb INHALATION ×2 (07:34→20:23)
[2021-03-12] MEDS: ipratropium-albuterol 3 mL Neb INHALATION ×4 (07:34→20:23)
--- NOTE | 2021-03-12 07:49 | PC.NURSE ---
BIS/TRain of Four BIS TO4 1999 44 4 2200 41 4 0000 43 4 0200 50 4 0400 41 4 0600 40 4
[2021-03-12] MEDS: cholecalciferol (vitamin D3) 1,000 unit Tablet 1000 UNIT PO (09:07)
[2021-03-12] MEDS: ascorbic acid 500 mg Tablet PO ×2 (09:07→18:12)
[2021-03-12] MEDS: famotidine 20 mg Tablet PO ×2 (09:07→18:12)
[2021-03-12] MEDS: cefTRIAXone 1,000 MG in sodium chloride 0.9% (plus) 50 ML 100 MG IV (09:08)
[2021-03-12] MEDS: azithromycin 500 MG in sodium chloride 0.9% 250 ML 250 MG IV (09:08)
[2021-03-12] MEDS: zinc gluconate 50 mg Tablet PO (09:10)
[2021-03-12] MEDS: FUROsemide 10 mg/mL SDV 4mL 40 MG IVP (09:10)
[2021-03-12] MEDS: aspirin 81 mg EC Tablet PO (09:10)
[2021-03-12 11:48] LABS: Glucose Point of Care 120 mg/dL (70-110)
[2021-03-12] MEDS: dexamethasone 10 mg/mL INJ 6 MG IVP (13:48)
--- NOTE | 2021-03-12 13:54 | XR_ITS ---
WS: [id number] Exam: XR chest 1V portable [id number] Date/Time of Exam: 03/12/2021 1:54 PM Reason For Exam: Respiratory failure Comparison with the previous study 03/10/2021. Bilateral pulmonary infiltrates show little change since the prior study. ET tube in satisfactory loc ation about 5 cm above the olive. An enteric tube enters the stomach but the tip is not visible. No pneumothorax or pleural effusion. Normal cardiomediastinal silhouette. Bony structures are intact. XR/XR chest 1V portable [id number] IMPRESSION: 1. Bilateral pulmonary infiltrates showing little change. 2. ET tube remaining in satisfactory position. An enteric tube extending below the diaphragm but the tip is not visible.
--- NOTE | 2021-03-12 13:55 | P.PN_ITS ---
Subjective Subjective: Interval history: The patient underwent her second prone positioning session yesterday. Currently the patient is in supine position. Her oxygen saturation is in the 90s with an FiO2 of 40%. The patient is on volume control mechanical ventilation. Increased yellowish secretion through the endotracheal tube. The white count is borderline elevated. Medications: Reviewed: Yes Vitals/I&O/Wt Last Vital Signs Temp 98.3 F 03/12/21 04:00 Pulse 78 03/12/21 11:51 Resp 16 03/12/21 13:10 BP 114/77 03/12/21 05:30 Pulse Ox 92 03/12/21 13:10 03/11/21 03/12/21 03/12/21 22:59 06:59 14:59 Intake Total 470.000 / 998.273 416.240 / 1414.513 413.503 / 413.503 Output Total 550 / 550 650 / 1200 Balance -80.000 / 448.273 -233.760 / 214.513 413.503 / 413.503 Weight last 48 hrs Weight 247 lb 11.2 oz Weight 248 lb 11.2 oz Physical Exam Narrative: EXAM NARRATIVE: General: The patient is intubated, and sedated Respiratory: Auscultation: Reduced breath sound bilaterally, occasional crackles, no wheezing or rhonchi Cardiovascular: S1-S2 present, no murmur Abdomen: Sluggish bowel sound Musculoskeletal: No obvious joint deformity Neuro: Patient is intubated and sedated Urinary Catheter Management^: [place]: Cath Placed During This Visit: no Reason for Continuing Indwelling Catheter: Accurate Measurement of Urinary Output in Critically Ill Patients Data : 03/12/21 04:44 03/12/21 04:44 Micro: Microbiology 03/09/21 17:00 Gram Stain - Final Sputum - Endotracheal Tube Aspirate Sputum Culture - Final 03/09/21 14:05 Gram Stain - Final Sputum - Endotracheal Tube Aspirate Sputum Culture - Final 03/06/21 16:00 Blood Culture - Final Blood NO GROWTH AFTER 5 DAYS 03/06/21 16:04 Blood Culture - Final Blood NO GROWTH AFTER 5 DAYS Attestation for Other Data: I personally reviewed and interpreted the following: Other data: I have reviewed the patient's laboratory, microbiologic and radiologic data A&P Assessment and plan (1) Acute respiratory distress syndrome: This is a 55-year-old lady with severe COVID-19. She has developed ARDS secondary to COVID-19. The patient has made good improvement after the second prone positioning session. Currently she is on 40% oxygen. Endotracheal tube aspirate appears to be thickened, yellowish. Given the fact that the patient had received Tocilizumab, the risk of her getting a secondary bacterial infection is fairly high. She had been receiving ceftriaxone and azithromycin. I will switch the ceftriaxone to cefepime. Azithromycin can be stopped after 5 days of therapy. We will switch her sedation to Precedex with minimal amount of fentanyl. The plan is to attempt extubation tomorrow. Ongoing to obtain a chest x-ray. Status: Acute (2) Pneumonia due to COVID-19 virus: The patient is on dexamethasone. She has completed the remdesivir. Will continue with supportive therapy. Status: Acute Attestations Medical Necessity Statement*: Will defer to the primary team Coding Level of Care Code Acute Senior Benefits Specialist for [facility] Diagnoses Acute respiratory distress syndrome J80 Pneumonia due to COVID-19 virus U07.1; J12.82
[2021-03-12] MEDS: cefepime 2,000 MG in sodium chloride 0.9% (plus) 50 ML 100 MG IV (14:32)
--- NOTE | 2021-03-12 14:42 | P.PN_ITS ---
Subjective Subjective: Interval history: Patient was seen this morning, currently on 40% FiO2, remains intubated, on propofol and fentanyl for sedation, off paralytics Vitals/I&O/Wt Last Vital Signs Temp 98.3 F 03/12/21 04:00 Pulse 78 03/12/21 11:51 Resp 16 03/12/21 13:10 BP 114/77 03/12/21 05:30 Pulse Ox 92 03/12/21 13:10 03/11/21 03/12/21 03/12/21 22:59 06:59 14:59 Intake Total 470.000 / 998.273 416.240 / 1414.513 413.503 / 413.503 Output Total 550 / 550 650 / 1200 Balance -80.000 / 448.273 -233.760 / 214.513 413.503 / 413.503 Weight last 48 hrs Weight 112.355 kg Weight 112.808 kg Physical Exam Narrative: EXAM NARRATIVE: Remains intubated, sedated Const: COMMON NORMALS: no acute distress and patient oriented x3 Resp: COMMON NORMALS: normal respiratory effort, No retractions, No use of accessory muscles and clear to auscultation bilaterally AUSCULTATION: clear to auscultation bilaterally Cardio: COMMON NORMALS: regular rate, regular rhythm, S1 normal heart sound present and S2 normal heart sound present RATE: regular rate RHYTHM: regular rhythm HEART SOUNDS: S1 normal heart sound present and S2 normal heart sound present GI: COMMON NORMALS: Normal to inspection, nondistended, normoactive bowel sounds present, Soft to palpation, non-tender and No hepatosplenomegaly present PALPATION: Yes Soft to palpation and Yes No hepatosplenomegaly present Extremity: COMMON NORMALS: no pedal edema Neuro: COMMON NORMALS: patient oriented x3 Psych: COMMON NORMALS: mental status grossly normal Urinary Catheter Management^: [place]: Cath Placed During This Visit: no Reason for Continuing Indwelling Catheter: Accurate Measurement of Urinary Output in Critically Ill Patients Data : 03/12/21 04:44 03/12/21 04:44 Micro: Microbiology 03/09/21 17:00 Gram Stain - Final Sputum - Endotracheal Tube Aspirate Sputum Culture - Final 03/09/21 14:05 Gram Stain - Final Sputum - Endotracheal Tube Aspirate Sputum Culture - Final 03/06/21 16:00 Blood Culture - Final Blood NO GROWTH AFTER 5 DAYS 03/06/21 16:04 Blood Culture - Final Blood NO GROWTH AFTER 5 DAYS A&P Assessment and plan (1) Pneumonia due to COVID-19 virus: Acute hypoxic respiratory failure, acute respiratory distress syndrome, hypoxia secondary to COVID-19 -Currently in ICU -Intubated, sedated, mechanical ventilation -Fentanyl, propofol for sedation, sedation vacation, spontaneous breathing trial today, 1 dose Lasix, plan on extubation tomorrow -Completed 2 proning session -ABG shows pH 7.44, PCO2 53.3, PO2 60.3, FiO2 40%, PEEP of 10, tidal volume 400 -Remdesivir day 5 of 5 -Decadron day 6 of 10 -1 dose Actemra March 08, 2021 -Currently on Rocephin and azithromycin, switched to cefepime -Follow blood cultures, urine cultures, urine bacterial antigens, sputum cultures -Vitamin C, vitamin D, zinc -Budesonide -DuoNeb -Monitor respiratory status closely -BiPAP as needed -On trickle tube feeds -Lovenox for DVT prophylaxis -Full code Status: Acute (2) Hypoxia: Status: Acute (3) Acute respiratory failure with hypoxia: Status: Acute (4) Acute respiratory distress syndrome: Status: Acute Attestations Medical Necessity Statement*: Patient requires hospitalization for pneumonia secondary COVID-19 Coding Level of Care Code Acute Agronomy Professor for [facility] Diagnoses Pneumonia due to COVID-19 virus U07.1; J12.82 Hypoxia R09.02 Acute respiratory failure with hypoxia J96.01 Acute respiratory distress syndrome J80
[2021-03-12 18:08] LABS: Glucose Point of Care 209 mg/dL (70-110)
[2021-03-12] MEDS: enoxaparin 40 mg/0.4 mL Syringe SUBCUT (18:12)
[2021-03-12] MEDS: insulin lispro 100 unit/1 mL SUBCUT ×2 (18:13→23:10)
[2021-03-12] MEDS: propofol 1,000 MG/100 ML INJ 27.85 MG IV (20:41)
--- NOTE | 2021-03-12 20:48 | PC.NURSE ---
1635 Reported redness to patients face and trunk after cefepime infusion. Orders to DC cefepime and start Primaxin. Cefepime added to patient's allergy list.
[2021-03-12 23:05] LABS: Glucose Point of Care 159 mg/dL (70-110)
[2021-03-13] VITALS (67 sets, daily range): BP systolic 90–142; BP diastolic 54–99; PULSE 67–126; RESP 10–29; TEMP 36.6–37.2; O2SAT 88–97
[2021-03-13] MEDS: propofol 1,000 MG/100 ML INJ 27.85 MG IV ×3 (00:15→07:13)
[2021-03-13 03:42] LABS: Basophils % 0.3 %; Eosinophils % 0.3 %; Lymphocytes % 14.3 %; Mean Corpuscular HGB Conc 33.3 g/dL (30.0-36.0); Mean Corpuscular Hemoglobin 28.5 pg (28.0-34.0); Mean Corpuscular Volume 85.5 fl (81-99); Mean Platelet Volume 9.1 fL (7.4-10.4); Monocytes % 7.6 %; Neutrophils # 9.89 10^3/uL (1.8-7.7); Nucleated Red Blood Cells % 0.1 %; Platelet Count 392 10^3/cmm (130-400); Red Blood Count 4.56 10^6/uL (4.1-5.3); Red Cell Distribution Width 12.3 % (12.1-15.1); White Blood Count 13.7 10^3/uL (4.0-10.0)
[2021-03-13 04:08] LABS: Alanine Aminotransferase 20 U/L (0-33); Albumin Level 2.8 g/dL (3.5-5.2); Alkaline Phosphatase 43 IU/L (35-105); Aspartate Amino Transferase 25 U/L (0-32); Blood Urea Nitrogen 16 mg/dL (6-20); C Reactive Protein 3.5 mg/L (0.0-4.9); Calcium 7.5 mg/dL (8.5-10.5); Carbon Dioxide 31 mmol/L (22-29); Chloride 94 mmol/L (98-107); Globulin 2.3 g/dL (1.3-4.6); Glomerular Filtration Rate 165.7 mL/min (90-130); Glucose 136 mg/dL (65-115); Magnesium 2.5 mg/dL (1.7-2.3); Osmolality Calculated 281 mOsm/kg (285-295); Phosphorus 2.6 mg/dL (2.5-4.5); Sodium 134 mmol/L (136-145); Total Bilirubin 0.3 mg/dL (0.15-1.2); Total Protein 5.1 g/dL (6.6-8.7)
[2021-03-13 04:10] LABS: Slide Review Slide Review Perform
[2021-03-13 04:20] LABS: NT Pro B Type Natriuretic Pept 109 pg/mL (0-125); Procalcitonin 0.04 ng/mL (0-0.5)
[2021-03-13 04:48] LABS: Blood Gas Allen Test Pos; Blood Gas Operator Identificat JB; Blood Gas Sample Site Radial, right; Blood Gas Sample Type Arterial; Oxygen Device VENT
[2021-03-13 04:49] LABS: ABG PCO2 48.1 mmHg (35-45); Arterial Blood Gas Hematocrit 44.1 % (37-47); Base Excess ABG 11.9 mmol/L (-2.0-2.0); PO2 ABG 68.8 mmHg (80.0-100.0)
[2021-03-13 04:55] LABS: Creatine Phosphokinase 651 U/L (26-192)
--- NOTE | 2021-03-13 05:38 | PC.NURSE ---
Shift Note Patient's vital signs have remained stable on the ventilator at 40%. Patient is on minimal sedation. Spoke with the patient's twice and gave him updates on the patient's status. Overall, the patient has had an uneventful night.
[2021-03-13 05:46] LABS: Glucose Point of Care 128 mg/dL (70-110)
--- NOTE | 2021-03-13 07:00 | XR_ITS ---
WS: [id number] Exam: XR chest 1V portable [id number] Date/Time of Exam: 03/13/2021 5:18 AM Reason For Exam: sob Comparison 03/12/2021. Patchy airspace infiltrates noted bilaterally. Infiltrates on the left have improved. Increasing infi ltrate in the right lower lung zone since prior study. ET tube remains in good position ending about 4 cm above the olive. An enteric tube is in place in the body of the stomach. Additional monitoring leads superimpose the chest. Heart size remains normal. The mediastinum and osseous thorax are unrema rkable. XR/XR chest 1V portable [id number] IMPRESSION: 1. Increasing infiltrate in the right lower lung zone since prior study. Left p ulmonary infiltrates have improved. 2. ET tube and enteric tube both in satisfactory position.
[2021-03-13] MEDS: budesonide 0.5 mg/2 mL Neb INHALATION ×2 (07:28→20:01)
[2021-03-13] MEDS: ipratropium-albuterol 3 mL Neb INHALATION ×4 (07:28→20:01)
[2021-03-13] MEDS: docusate sodium 100 mg Capsule PO ×2 (08:06→17:15)
[2021-03-13] MEDS: famotidine 20 mg Tablet PO ×2 (08:06→17:15)
[2021-03-13] MEDS: cholecalciferol (vitamin D3) 1,000 unit Tablet 1000 UNIT PO (08:06)
[2021-03-13] MEDS: aspirin 81 mg EC Tablet PO (08:06)
[2021-03-13] MEDS: polyethylene glycol 3350 Pkt 17 gm PO (08:06)
[2021-03-13] MEDS: zinc gluconate 50 mg Tablet PO (08:06)
[2021-03-13] MEDS: ascorbic acid 500 mg Tablet PO ×2 (08:06→17:15)
--- NOTE | 2021-03-13 08:38 | PC.NURSE ---
0700 Report received, assessment competed. VSS. Pt able to open R eye, L eye swollen. Does not follow commands. Fentanyl at 50, propofol at 40. OGT in place with Jevity 1.2 infusing at 10ml/h with flushes per orders. Minimal residual noted. ETT in place, vent settings per RT. [place] cath draining freely to BSD, dark blood noted around catheter, appears to be menstrual blood. Repositioned and oral care performed q2h and PRN. Restraints in place per orders. No other issues noted. Will monitor.
[2021-03-13] MEDS: FUROsemide 10 mg/mL SDV 4mL 40 MG IVP (09:13)
[2021-03-13] MEDS: azithromycin 500 MG in sodium chloride 0.9% 250 ML 250 MG IV (09:14)
[2021-03-13 10:47] LABS: Glucose Point of Care 125 mg/dL (70-110)
[2021-03-13] MEDS: dexmedeTOMIDine 0.9 % NaCL 400 MCG/100 ML PREMIX IV (11:44)
--- NOTE | 2021-03-13 11:50 | PM.PN ---
Subjective Subjective: Interval history: Patient was examined, and he is eating, sedated, on 40% FiO2, afebrile overnight Vitals/I&O/Wt Last Vital Signs Temp 98.5 F 03/13/21 08:00 Pulse 89 03/13/21 11:04 Resp 18 03/13/21 11:02 BP 109/85 03/13/21 10:00 Pulse Ox 90 03/13/21 11:02 03/12/21 03/13/21 03/13/21 22:59 06:59 14:59 Intake Total 883.75 / 1547.253 574.203 / 2121.456 609.861 / 609.861 Output Total 375 / 1675 500 / 2175 825 / 825 Balance 508.75 / -127.747 74.203 / -53.544 -215.139 / -215.139 Weight last 48 hrs Weight 112.446 kg Weight 112.355 kg Physical Exam Const: COMMON NORMALS: no acute distress Resp: COMMON NORMALS: normal respiratory effort, No retractions, No use of accessory muscles and clear to auscultation bilaterally AUSCULTATION: clear to auscultation bilaterally Cardio: COMMON NORMALS: regular rate, regular rhythm, S1 normal heart sound present and S2 normal heart sound present RATE: regular rate RHYTHM: regular rhythm HEART SOUNDS: S1 normal heart sound present and S2 normal heart sound present GI: COMMON NORMALS: Normal to inspection, nondistended, normoactive bowel sounds present, Soft to palpation and non-tender PALPATION: Yes Soft to palpation Extremity: COMMON NORMALS: no pedal edema Urinary Catheter Management^: [place]: Cath Placed During This Visit: no Reason for Continuing Indwelling Catheter: Accurate Measurement of Urinary Output in Critically Ill Patients Data : 03/13/21 03:23 03/13/21 03:23 Micro: Microbiology 03/12/21 15:38 Gram Stain - Final Sputum - Endotracheal Tube Aspirate A&P Assessment and plan (1) Pneumonia due to COVID-19 virus: Acute hypoxic respiratory failure, acute respiratory distress syndrome, hypoxia secondary to COVID-19 -Currently in ICU -Intubated, sedated, mechanical ventilation -Fentanyl, propofol for sedation, sedation vacation, spontaneous breathing trial today, 1 dose Lasix, plan on extubation today -Completed 2 proning session -ABG shows pH 7.5, PCO2 48, PO2 68.8, FiO2 40%, tidal volume 400, PEEP of 10 -Remdesivir day 5 of 5 -Decadron day 7 of 10 -1 dose Actemra March 08, 2021 -Currently on Primaxin -Follow blood cultures, urine cultures, urine bacterial antigens, sputum cultures -Vitamin C, vitamin D, zinc -Budesonide -DuoNeb -Monitor respiratory status closely -On trickle tube feeds -Lovenox for DVT prophylaxis -Full code Status: Acute (2) Hypoxia: Status: Acute (3) Acute respiratory failure with hypoxia: Status: Acute (4) Acute respiratory distress syndrome: Status: Acute Attestations Medical Necessity Statement*: Patient requires hospitalization for pneumonia secondary COVID-19 Coding Level of Care Code Acute Industrial Hire Sales Assistant for [facility] Diagnoses Pneumonia due to COVID-19 virus U07.1; J12.82 Hypoxia R09.02 Acute respiratory failure with hypoxia J96.01 Acute respiratory distress syndrome J80
--- NOTE | 2021-03-13 13:21 | PC.NURSE ---
Tube feeding stopped prior to planned extubation
[2021-03-13] MEDS: dexamethasone 10 mg/mL INJ 6 MG IVP (13:55)
--- NOTE | 2021-03-13 14:26 | PC.NURSE ---
Pt extubated per RT per orders to 40l/40% HHFNC. Tolerated well. Precedex infusing per orders. Follows all commands. Will monitor.
--- NOTE | 2021-03-13 15:55 | PM.PN ---
Subjective Subjective: Interval history: The patient was successfully extubated today. Currently she is on high flow nasal cannula 40% 40 L. She is resting comfortably in bed. Chest x-ray this morning revealed worsening infiltrate in the right lower lobe. The patient had a questionable allergic reaction to cefepime yesterday and currently she is on imipenem. Endotracheal tube aspirate from yesterday has not grown any microorganisms. However there is some gram-negative rods on the gram stain wonder if the patient actually does have a gram-negative infection. Medications: Reviewed: Yes Vitals/I&O/Wt Last Vital Signs Temp 98.7 F 03/13/21 12:00 Pulse 84 03/13/21 15:17 Resp 18 03/13/21 15:17 BP 95/63 03/13/21 14:00 Pulse Ox 91 03/13/21 15:17 03/13/21 03/13/21 03/13/21 06:59 14:59 22:59 Intake Total 574.203 / 2121.456 893.561 / 893.561 Output Total 500 / 2175 1550 / 1550 Balance 74.203 / -53.544 -656.439 / -656.439 Weight last 48 hrs Weight 247 lb 14.4 oz Weight 247 lb 11.2 oz Physical Exam Narrative: EXAM NARRATIVE: General: The patient is resting comfortably Respiratory: Auscultation: Reduced breath sound bilaterally, no crackles wheezing or rhonchi Cardiovascular: S1-S2 present, no murmur, no peripheral edema Abdomen: Soft, nontender, positive bowel sound Musculoskeletal: No obvious joint deformity Neuro: Patient is arousable and following commands and moving all extremities Urinary Catheter Management^: [place]: Cath Placed During This Visit: no Reason for Continuing Indwelling Catheter: Accurate Measurement of Urinary Output in Critically Ill Patients Data : 03/13/21 03:23 03/13/21 03:23 Micro: Microbiology 03/12/21 15:38 Gram Stain - Final Sputum - Endotracheal Tube Aspirate A&P Assessment and plan (1) Acute respiratory distress syndrome: This is a 55-year-old lady with severe COVID-19. She has developed ARDS secondary to COVID-19. The patient was successfully extubated today. Currently she is on high flow nasal cannula 40 L 40%. Endotracheal tube aspirate is growing some gram-negative rods in addition to gram-positive cocci. There was new right lower lobe infiltrate on the chest x-ray as well. For the time being, we will continue with imipenem for empiric therapy for 7 days given the fact that the patient has received tocilizumab. Will discontinue the dexamethasone after 10 days. Will focus on early mobilization, transfer of the patient out of the ICU and possibly discharge home as soon as the patient is ready. This will minimize exposure to resistant gram-negative and gram-positive organisms in the hospital. Status: Acute (2) Pneumonia due to COVID-19 virus: The patient is on dexamethasone. She has completed the remdesivir. Will continue with supportive therapy. Status: Acute Attestations Medical Necessity Statement*: Will defer to the primary team Coding Level of Care Code Acute Orthotics Technician for [facility] Diagnoses Acute respiratory distress syndrome J80 Pneumonia due to COVID-19 virus U07.1; J12.82 Time Spent (min) 33
[2021-03-13 16:35] LABS: Glucose Point of Care 244 mg/dL (70-110)
[2021-03-13] MEDS: enoxaparin 40 mg/0.4 mL Syringe SUBCUT (17:15)
[2021-03-13] MEDS: insulin lispro 100 unit/1 mL SUBCUT ×2 (17:15→23:13)
--- NOTE | 2021-03-13 18:16 | PC.NURSE ---
Shift Note Frequent safety and comfort rounds continue. Orders and/or nursing care completed as indicated. Patient monitored for response to intervention and treatment(s). Education provided includes treatment plan, medications, oxygen needs. VSS. [place] cath draining freely. Ice chips given per orders, tolerated well. Will continue to monitor.
--- NOTE | 2021-03-13 19:30 | PC.NURSE ---
MAR Upon assessment, precedex gtt is turned off, but the MAR shows that it is still running. Edited MAR to reflect this.
[2021-03-13 23:12] LABS: Glucose Point of Care 160 mg/dL (70-110)
[2021-03-14] VITALS (62 sets, daily range): BP systolic 108–147; BP diastolic 61–111; PULSE 68–106; RESP 11–27; TEMP 36.3–37.2; O2SAT 87–93
[2021-03-14 04:37] LABS: Basophils % 0.3 %; Eosinophils % 0.2 %; Hematocrit 42.6 % (37.0-47.0); Hemoglobin 14.2 g/dL (11.5-15.3); Lymphocytes # 2.4 10^3/uL (0.8-4.8); Lymphocytes % 16.8 %; Mean Corpuscular HGB Conc 33.3 g/dL (30.0-36.0); Mean Corpuscular Hemoglobin 28.9 pg (28.0-34.0); Mean Corpuscular Volume 86.6 fl (81-99); Mean Platelet Volume 8.8 fL (7.4-10.4); Monocytes # 1.2 10^3/uL (0.2-0.9); Monocytes % 8.5 %; Neutrophils # 9.82 10^3/uL (1.8-7.7); Neutrophils % 69.5 %; Nucleated Red Blood Cells % 0 %; Platelet Count 339 10^3/cmm (130-400); Red Blood Count 4.92 10^6/uL (4.1-5.3); Red Cell Distribution Width 12.8 % (12.1-15.1); White Blood Count 14.1 10^3/uL (4.0-10.0)
[2021-03-14 05:03] LABS: Alanine Aminotransferase 25 U/L (0-33); Alkaline Phosphatase 44 IU/L (35-105); Anion Gap 14.5 (5-19); Aspartate Amino Transferase 35 U/L (0-32); Blood Urea Nitrogen 20 mg/dL (6-20); C Reactive Protein 2.1 mg/L (0.0-4.9); Calcium 7.8 mg/dL (8.5-10.5); Carbon Dioxide 29 mmol/L (22-29); Chloride 95 mmol/L (98-107); Globulin 2.5 g/dL (1.3-4.6); Glucose 107 mg/dL (65-115); Magnesium 2.5 mg/dL (1.7-2.3); Osmolality Calculated 283 mOsm/kg (285-295); Phosphorus 3.1 mg/dL (2.5-4.5); Potassium 3.5 mmol/L (3.5-5.1); Sodium 135 mmol/L (136-145); Total Bilirubin 0.4 mg/dL (0.15-1.2); Total Protein 5.5 g/dL (6.6-8.7)
[2021-03-14 05:10] LABS: NT Pro B Type Natriuretic Pept 246 pg/mL (0-125); Procalcitonin 0.05 ng/mL (0-0.5)
[2021-03-14 05:25] LABS: Creatine Phosphokinase 1167 U/L (26-192)
--- NOTE | 2021-03-14 07:18 | PC.NURSE ---
Report received, assessment completed. PT AAOx4, VSS. Remains on HHFNC 40L/40%. Denies any pain or SOB. Able to make all needs known. Repositioned per staff. Education provided r/t therapy, medication, oxygen and hospitalization. Will monitor.
[2021-03-14] MEDS: ascorbic acid 500 mg Tablet PO ×2 (07:59→17:02)
[2021-03-14] MEDS: aspirin 81 mg EC Tablet PO (07:59)
[2021-03-14] MEDS: famotidine 20 mg Tablet PO ×2 (07:59→17:02)
[2021-03-14] MEDS: cholecalciferol (vitamin D3) 1,000 unit Tablet 1000 UNIT PO (07:59)
[2021-03-14] MEDS: zinc gluconate 50 mg Tablet PO (07:59)
[2021-03-14] MEDS: docusate sodium 100 mg Capsule PO ×2 (07:59→17:02)
[2021-03-14] MEDS: polyethylene glycol 3350 Pkt 17 gm PO (08:00)
[2021-03-14] MEDS: ipratropium-albuterol 3 mL Neb INHALATION ×4 (08:05→20:28)
[2021-03-14] MEDS: budesonide 0.5 mg/2 mL Neb INHALATION ×2 (08:05→20:28)
[2021-03-14] MEDS: azithromycin 500 MG in sodium chloride 0.9% 250 ML 250 MG IV (08:47)
[2021-03-14 11:11] LABS: Glucose Point of Care 97 mg/dL (70-110)
[2021-03-14] MEDS: dexamethasone 10 mg/mL INJ 6 MG IVP (13:18)
--- NOTE | 2021-03-14 16:44 | P.PN_ITS ---
Subjective Subjective: Interval history: Patient was seen early in the morning, she was extubated yesterday, on heated high flow, currently on 40 L 40%, she does tell me that she feels better, still a bit short of breath, no chest pain, no fevers Vitals/I&O/Wt Last Vital Signs Temp 98.8 F 03/14/21 08:00 Pulse 100 03/14/21 16:00 Resp 22 H 03/14/21 16:00 BP 124/83 03/14/21 16:00 Pulse Ox 91 03/14/21 16:00 03/14/21 03/14/21 03/14/21 06:59 14:59 22:59 Intake Total 260 / 1427.935 400.000 / 400.000 0 / 400.000 Output Total 300 / 2250 Balance -40 / -822.065 400.000 / 400.000 0 / 400.000 Weight last 48 hrs Weight 110.631 kg Weight 112.446 kg Physical Exam Const: COMMON NORMALS: no acute distress and patient oriented x3 Resp: COMMON NORMALS: normal respiratory effort and No retractions AUSCULTATION: diminished lung sounds diffuse Cardio: COMMON NORMALS: regular rate, regular rhythm, S1 normal heart sound present and S2 normal heart sound present RATE: regular rate RHYTHM: regular rhythm HEART SOUNDS: S1 normal heart sound present and S2 normal heart sound present GI: COMMON NORMALS: Normal to inspection, nondistended, normoactive bowel sounds present, Soft to palpation and non-tender PALPATION: Yes Soft to palpation Extremity: COMMON NORMALS: no pedal edema Neuro: COMMON NORMALS: patient oriented x3 Psych: COMMON NORMALS: mental status grossly normal Urinary Catheter Management^: [place]: Cath Placed During This Visit: no Reason for Continuing Indwelling Catheter: Accurate Measurement of Urinary Output in Critically Ill Patients Data : 03/14/21 04:17 03/14/21 04:17 Micro: Microbiology 03/12/21 15:38 Gram Stain - Final Sputum - Endotracheal Tube Aspirate Sputum Culture - Preliminary Streptococcus group f A&P Assessment and plan (1) Pneumonia due to COVID-19 virus: Acute hypoxic respiratory failure, acute respiratory distress syndrome, hypoxia secondary to COVID-19 -Currently in ICU -Extubated 03/13/2021 -Currently on heated high flow 40 L 40% -Completed 2 proning session -Remdesivir day 5 of 5 -Decadron day 8 of 10 -1 dose Actemra March 08, 2021 -Currently on Primaxin -Follow blood cultures, urine cultures, urine bacterial antigens, sputum cultures -Vitamin C, vitamin D, zinc -Budesonide -DuoNeb -Monitor respiratory status closely -PT OT, speech therapy eval -Lovenox for DVT prophylaxis -Will work on possible placement to long-term care facility Possible allergic reaction to cefdinir, switch to Primaxin She does have left eye swelling, I do not believe it is an allergic reaction, likely secondary to proning, continue to monitor -Full code Status: Acute (2) Hypoxia: Status: Acute (3) Acute respiratory failure with hypoxia: Status: Acute (4) Acute respiratory distress syndrome: Status: Acute Attestations Medical Necessity Statement*: Patient requires hospitalization for acute hypoxic respiratory failure secondary to COVID-19 Coding Level of Care Code Acute Second Hand Paper Machine for [facility] Diagnoses Pneumonia due to COVID-19 virus U07.1; J12.82 Hypoxia R09.02 Acute respiratory failure with hypoxia J96.01 Acute respiratory distress syndrome J80
[2021-03-14 17:01] LABS: Glucose Point of Care 178 mg/dL (70-110)
[2021-03-14] MEDS: enoxaparin 40 mg/0.4 mL Syringe SUBCUT (17:02)
[2021-03-14] MEDS: insulin lispro 100 unit/1 mL SUBCUT (17:06)
--- NOTE | 2021-03-14 19:00 | PC.NURSE ---
Pt sitting up in bed eating dinner. Denies any needs. VSS. HHFNC in use. Will monitor.
[2021-03-14 23:40] LABS: Glucose Point of Care 127 mg/dL (70-110)
[2021-03-15] VITALS (46 sets, daily range): BP systolic 112–141; BP diastolic 55–90; PULSE 0–91; RESP 14–30; TEMP 36.4–37.1; O2SAT 87–98
[2021-03-15 04:07] LABS: Basophils % 0.2 %; Eosinophils % 0.3 %; Hematocrit 40.8 % (37.0-47.0); Hemoglobin 13.2 g/dL (11.5-15.3); Lymphocytes # 2.6 10^3/uL (0.8-4.8); Lymphocytes % 23.7 %; Mean Corpuscular HGB Conc 32.4 g/dL (30.0-36.0); Mean Corpuscular Hemoglobin 28.1 pg (28.0-34.0); Mean Platelet Volume 9.1 fL (7.4-10.4); Monocytes % 8.9 %; Neutrophils # 6.95 10^3/uL (1.8-7.7); Neutrophils % 63.6 %; Nucleated Red Blood Cells % 0 %; Platelet Count 322 10^3/cmm (130-400); Red Blood Count 4.69 10^6/uL (4.1-5.3); White Blood Count 10.9 10^3/uL (4.0-10.0)
[2021-03-15 04:23] LABS: Glucose Point of Care 102 mg/dL (70-110)
[2021-03-15 04:41] LABS: NT Pro B Type Natriuretic Pept 377 pg/mL (0-125); Procalcitonin 0.04 ng/mL (0-0.5)
[2021-03-15 04:53] LABS: Alanine Aminotransferase 24 U/L (0-33); Albumin Level 2.9 g/dL (3.5-5.2); Alkaline Phosphatase 41 IU/L (35-105); Blood Urea Nitrogen 19 mg/dL (6-20); C Reactive Protein 1.3 mg/L (0.0-4.9); Calcium 8.3 mg/dL (8.5-10.5); Carbon Dioxide 28 mmol/L (22-29); Chloride 98 mmol/L (98-107); Globulin 2.3 g/dL (1.3-4.6); Glucose 103 mg/dL (65-115); Magnesium 2.3 mg/dL (1.7-2.3); Osmolality Calculated 289 mOsm/kg (285-295); Phosphorus 3.1 mg/dL (2.5-4.5); Sodium 138 mmol/L (136-145); Total Bilirubin 0.5 mg/dL (0.15-1.2); Total Protein 5.2 g/dL (6.6-8.7)
[2021-03-15 04:54] LABS: Anion Gap 15.6 (5-19); Aspartate Amino Transferase 31 U/L (0-32); Potassium 3.6 mmol/L (3.5-5.1)
[2021-03-15 04:56] LABS: Creatine Phosphokinase 474 U/L (26-192)
--- NOTE | 2021-03-15 07:41 | PC.NURSE ---
Patient removed wedding band due to swelling of left hand. Nurse placed patient name stick on the ring, placed the ring in a biohazard back which is also labeled with patient name, and placed in the patient's belongings bag.
--- NOTE | 2021-03-15 08:30 | PM.PN ---
Subjective Subjective: Interval history: Gregoria reports she is doing okay. Eyes that were swelling for perhaps a little bit better. Does not feel too short of breath. Medications: Reviewed: Yes Vitals/I&O/Wt Last Vital Signs Temp 97.4 F L 03/14/21 20:00 Pulse 82 03/15/21 06:00 Resp 22 H 03/15/21 06:00 BP 113/55 03/15/21 06:00 Pulse Ox 91 03/15/21 06:00 03/14/21 03/15/21 03/15/21 22:59 06:59 14:59 Intake Total 700 / 1100.000 440 / 1540.000 Output Total 600 / 600 400 / 1000 Balance 100 / 500.000 40 / 540.000 Weight last 48 hrs Weight 109.316 kg Weight 110.631 kg Physical Exam Narrative: EXAM NARRATIVE: General exam no distress Neck is supple Cardiovascular regular rate and rhythm, no murmur Lungs a few scattered crackles, dry Abdomen is soft demonstrates [place] Extremities no cyanosis clubbing or edema Urinary Catheter Management^: [place]: Cath Placed During This Visit: no Reason for Continuing Indwelling Catheter: Accurate Measurement of Urinary Output in Critically Ill Patients Data : 03/15/21 03:40 03/15/21 03:40 Micro: Microbiology 03/12/21 15:38 Gram Stain - Final Sputum - Endotracheal Tube Aspirate Sputum Culture - Preliminary Streptococcus group f A&P Assessment and plan (1) Pneumonia due to COVID-19 virus: Acute hypoxic respiratory failure, acute respiratory distress syndrome, hypoxia secondary to COVID-19 Extubated March 13 after 2 proning sessions Currently on Primaxin, for 7 days of empiric therapy. Will complete 10 days of IV dexamethasone Currently down to FiO2 of 35% Previously completed remdesivir, and received Actemra March 08 Continue pulmonary toilet, DuoNeb, physical therapy Working on placement to long-term care facility Discontinue [place] if can get up and around some in the next 24 hours Status: Acute (2) Hypoxia: Status: Acute (3) Acute respiratory failure with hypoxia: Status: Acute (4) Acute respiratory distress syndrome: Status: Acute Additional A&P Information Full code Lovenox for DVT prophylaxis Transfer out of ICU Attestations Medical Necessity Statement*: Needs continued hospitalization for severe COVID-19 pneumonia requiring high flow oxygen Coding Level of Care Code Acute Stage Producer for Chg Fwd Diagnoses Pneumonia due to COVID-19 virus U07.1; J12.82 Hypoxia R09.02 Acute respiratory failure with hypoxia J96.01 Acute respiratory distress syndrome J80
[2021-03-15] MEDS: zinc gluconate 50 mg Tablet PO (08:51)
[2021-03-15] MEDS: famotidine 20 mg Tablet PO ×2 (08:51→17:52)
[2021-03-15] MEDS: aspirin 81 mg EC Tablet PO (08:51)
[2021-03-15] MEDS: cholecalciferol (vitamin D3) 1,000 unit Tablet 1000 UNIT PO (08:51)
[2021-03-15] MEDS: ascorbic acid 500 mg Tablet PO (08:51)
[2021-03-15] MEDS: budesonide 0.5 mg/2 mL Neb INHALATION ×2 (08:52→21:13)
[2021-03-15] MEDS: ipratropium-albuterol 3 mL Neb INHALATION ×4 (08:52→21:13)
[2021-03-15] MEDS: polyethylene glycol 3350 Pkt 17 gm PO (08:53)
[2021-03-15] MEDS: docusate sodium 100 mg Capsule PO ×2 (08:53→17:52)
[2021-03-15] MEDS: azithromycin 500 MG in sodium chloride 0.9% 250 ML 200 MG IV (09:24)
[2021-03-15 12:00] LABS: Glucose Point of Care 93 mg/dL (70-110)
[2021-03-15] MEDS: dexamethasone 10 mg/mL INJ 6 MG IVP (15:35)
[2021-03-15 16:05] LABS: Glucose Point of Care 111 mg/dL (70-110)
[2021-03-15] MEDS: enoxaparin 40 mg/0.4 mL Syringe SUBCUT (17:53)
--- NOTE | 2021-03-15 18:31 | PC.NURSE ---
SHIft Summary: overall productive shift. Patient was initially on 35L/35% HHF, but has been titrated down to 5L nasal cannula. Patient reports feeling stronger today than yesterday and sat up in a chair for the full shift. Was a 2 person assist getting to the chair in the morning, but was able to move from the recliner to the bed with standby assistance by the end of the shift.
[2021-03-15 21:32] LABS: Glucose Point of Care 157 mg/dL (70-110)
[2021-03-16] VITALS (11 sets, daily range): BP systolic 108–128; BP diastolic 65–80; PULSE 0–88; RESP 16–22; TEMP 36.4–37; O2SAT 91–990
[2021-03-16 03:58] LABS: Basophils % 0.2 %; Eosinophils % 0.1 %; Hemoglobin 13.1 g/dL (11.5-15.3); Lymphocytes % 21.8 %; Mean Corpuscular HGB Conc 32.8 g/dL (30.0-36.0); Mean Corpuscular Hemoglobin 28.7 pg (28.0-34.0); Mean Corpuscular Volume 87.5 fl (81-99); Monocytes # 0.8 10^3/uL (0.2-0.9); Monocytes % 9.1 %; Neutrophils # 6.02 10^3/uL (1.8-7.7); Neutrophils % 67.2 %; Nucleated Red Blood Cells % 0 %; Platelet Count 281 10^3/cmm (130-400); Red Blood Count 4.57 10^6/uL (4.1-5.3)
[2021-03-16 04:22] LABS: Anion Gap 10.5 (5-19); Blood Urea Nitrogen 17 mg/dL (6-20); Calcium 7.8 mg/dL (8.5-10.5); Carbon Dioxide 31 mmol/L (22-29); Chloride 101 mmol/L (98-107); Glomerular Filtration Rate 165.7 mL/min (90-130); Glucose 108 mg/dL (65-115); Magnesium 2.4 mg/dL (1.7-2.3); Osmolality Calculated 290 mOsm/kg (285-295); Potassium 3.5 mmol/L (3.5-5.1); Sodium 139 mmol/L (136-145)
[2021-03-16 07:54] LABS: Glucose Point of Care 90 mg/dL (70-110)
[2021-03-16] MEDS: polyethylene glycol 3350 Pkt 17 gm PO (09:46)
[2021-03-16] MEDS: famotidine 20 mg Tablet PO ×2 (09:47→17:52)
[2021-03-16] MEDS: cholecalciferol (vitamin D3) 1,000 unit Tablet 1000 UNIT PO (09:47)
[2021-03-16] MEDS: docusate sodium 100 mg Capsule PO ×2 (09:47→17:52)
[2021-03-16] MEDS: aspirin 81 mg EC Tablet PO (09:47)
--- NOTE | 2021-03-16 11:55 | PC.NURSE ---
Dr. Orozco approved one visitor for today, as long as they don proper PPE.
[2021-03-16 12:56] LABS: Glucose Point of Care 92 mg/dL (70-110)
[2021-03-16] MEDS: dexamethasone 10 mg/mL INJ 6 MG IVP (13:12)
--- NOTE | 2021-03-16 13:46 | P.PN_ITS ---
Subjective Subjective: Interval history: Gregoria reports she is feeling better. She is interested in going home soon. Medications: Reviewed: Yes Vitals/I&O/Wt Last Vital Signs Temp 97.7 F 03/16/21 12:00 Pulse 68 03/16/21 12:00 Resp 18 03/16/21 12:00 BP 122/72 03/16/21 12:00 Pulse Ox 92 03/16/21 12:00 03/15/21 03/16/21 03/16/21 22:59 06:59 14:59 Intake Total 300 / 800 100 / 900 Output Total 550 / 750 Balance 300 / 600 -450 / 150 Weight last 48 hrs Weight 109.316 kg Physical Exam Narrative: EXAM NARRATIVE: General exam no distress Neck is supple Cardiovascular regular rate and rhythm, no murmur Lungs a few scattered crackles, dry Abdomen is soft demonstrates [place] Extremities no cyanosis clubbing or edema Urinary Catheter Management^: [place]: Cath Placed During This Visit: no Reason for Continuing Indwelling Catheter: Accurate Measurement of Urinary Output in Critically Ill Patients Data : 03/16/21 03:45 03/16/21 03:45 Micro: Microbiology 03/12/21 15:38 Gram Stain - Final Sputum - Endotracheal Tube Aspirate Sputum Culture - Final Streptococcus group f A&P Assessment and plan (1) Pneumonia due to COVID-19 virus: Acute hypoxic respiratory failure, acute respiratory distress syndrome, hypoxia secondary to COVID-19 Extubated March 13 after 2 proning sessions Currently on Primaxin, for 7 days of empiric therapy. Will complete 10 days of IV dexamethasone. She is completed today. Discontinued. Currently down to 5 L per high flow nasal cannula Previously completed remdesivir, and received Actemra March 08 Continue pulmonary toilet, DuoNeb, physical therapy Discontinue [place] today Discussed with her if oxygen continues to wean possible discharge tomorrow to home, with physical therapy if needed. Status: Acute (2) Hypoxia: Status: Acute (3) Acute respiratory failure with hypoxia: Status: Acute (4) Acute respiratory distress syndrome: Status: Acute Additional A&P Information Full code Lovenox for DVT prophylaxis No need for laboratory tomorrow. Attestations Medical Necessity Statement*: Needs continued hospitalization secondary to severe COVID requiring high flow oxygen. Coding Level of Care Code Acute Counterintelligence Agent for [facility] Fwd Diagnoses Pneumonia due to COVID-19 virus U07.1; J12.82 Hypoxia R09.02 Acute respiratory failure with hypoxia J96.01 Acute respiratory distress syndrome J80
[2021-03-16] MEDS: ipratropium-albuterol 3 mL Neb INHALATION ×3 (15:50→21:15)
[2021-03-16] MEDS: insulin lispro 100 unit/1 mL SUBCUT (17:51)
[2021-03-16] MEDS: enoxaparin 40 mg/0.4 mL Syringe SUBCUT (17:52)
--- NOTE | 2021-03-16 20:01 | PC.NURSE ---
i reported high reps 20 to nurse
[2021-03-16] MEDS: budesonide 0.5 mg/2 mL Neb INHALATION (21:15)
[2021-03-17 00:30] VITALS: BP 102/70; PULSE 64; RESP 18; TEMP 36.6; O2SAT 92
[2021-03-17 04:00] VITALS: BP 102/70; PULSE 64; RESP 18; TEMP 36.6
[2021-03-17 06:00] VITALS: BMI 35.6
[2021-03-17 07:00] VITALS: BP 131/84; PULSE 77; RESP 20; TEMP 36.3; O2SAT 92
[2021-03-17 08:30] VITALS: PULSE 60; RESP 18; O2SAT 85; O2SAT 89; O2SAT 92; O2SAT 96
[2021-03-17] MEDS: ipratropium-albuterol 3 mL Neb INHALATION (08:30)
[2021-03-17] MEDS: budesonide 0.5 mg/2 mL Neb INHALATION (08:30)
[2021-03-17 08:35] VITALS: PULSE 66
--- NOTE | 2021-03-17 08:42 | PM.DCS ---
Discharge Providers Date of Admission: 03/06/21 13:26 Date of Discharge: March 17, 2021 Attending Provider at Admission: Luciano Williamson MD Attending Provider at Discharge: London Orozco MD Primary Care Provider: Rupali Nicolas APN Diagnoses at Discharge Discharge Diagnosis (1) Pneumonia due to COVID-19 virus: Status: Acute (2) Hypoxia: Status: Acute (3) Acute respiratory failure with hypoxia: Status: Acute (4) Acute respiratory distress syndrome: Status: Acute Reason for Visit Reason for Visit: COVID INFUSION CANT BE DONE Hospital Course Hospital Course Gregoria is a 55-year-old white female who presented March 06 with respiratory distress, secondary to COVID-19 pneumonia. She was placed on doxycycline, dexamethasone, remdesivir. During her course she worsened, requiring high flow oxygen. Antibiotics were changed to Rocephin and azithromycin. She received Actemra on March 08. March 09 she worsened, requiring endotracheal intubation. She underwent several proning sessions, with significant improvement. She was extubated March 13. From here she had significant continued rapid improvement, weaning down to 4 L by time of discharge. She had also been transitioned to Primaxin during that timeframe in case superimposed bacterial pneumonia was present. She will finish up 3 days of Levaquin as an outpatient. Cephalosporins are avoided as she had a possible allergic reaction to cefepime. She will follow-up with her primary care provider, return for any concerns. Consideration of pulmonary follow-up if she requires oxygen for any extended amount of time. Physical Exam Narrative: EXAM NARRATIVE: General exam no distress Neck is supple Cardiovascular regular rhythm without murmur Lungs few fine crackles Abdomen is soft Extremities no cyanosis clubbing or edema Urinary Catheter Management^: [place]: Cath Placed During This Visit: yes, but has since been removed by the nurse Reason for Continuing Indwelling Catheter: Accurate Measurement of Urinary Output in Critically Ill Patients Date Urinary Catheter Removed: 03/16/21 Time Urinary Catheter Discontinued: 18:00 Discharge Data Data Completed and Pending: Completed Studies During Hospitalization Category Date Time Status CT angio chest PE protcl [id number] Urge nt Cat Scan 03/06/21 14:53 Completed XR chest 1V kianna ble [id number] NOW Exams 03/09/21 14:28 Completed XR chest 1V kianna ble [id number] Routine Exams 03/09/21 07:00 Completed XR chest 1V kianna ble [id number] Routine Exams 03/10/21 07:00 Completed XR chest 1V kianna ble [id number] Routine Exams 03/12/21 13:54 Completed XR chest 1V kianna ble [id number] Routine Exams 03/13/21 07:00 Completed XR chest 1V kianna ble [id number] Urgent Exams 03/06/21 12:25 Completed Labs from last 24 hours 03/16/21 12:40 POC Glucose 92 Vitals: Last Vital Signs Temp 97.8 F 03/17/21 04:00 Pulse 64 03/17/21 04:00 Resp 18 03/17/21 04:00 BP 102/70 03/17/21 04:00 Pulse Ox 92 03/17/21 00:30 Discharge Plan Discharge Patient Disposition: Home Condition: Stable Prescriptions: New levofloxacin 750 mg tablet 750 mg PO DAILY 3 Days Qty: 3 RF: 0 Continued omeprazole 20 mg tablet,delayed release (DR/EC) 20 mg PO DAILY RF: 0 guaifenesin [Mucinex] 600 mg tablet extended release 12hr 600 mg PO Q12H PRN (Reason: Congestion) RF: 0 aspirin 81 mg Tablet,Delayed Release (Dr/Ec) 81 mg PO DAILY RF: 0 Vitamin C 500 mg Tablet 500 mg PO DAILY RF: 0 olopatadine 0.1 % drops 1 drp ophthalmic (eye) DAILY PRN (Reason: Allergy Symptoms) RF: 0 azelastine 137 mcg (0.1 %) aerosol,spray 2 spray INTRANASAL BID RF: 0 Vitamin D3 1 cap PO DAILY RF: 0 Ventolin HFA 90 mcg/actuation Hfa Aerosol Inhaler 2 puff INHALATION Q4H PRN (Reason: Shortness Of Breath) RF: 0 fexofenadine 180 mg tablet 180 mg PO QAM RF: 0 Discontinued medroxyprogesterone 2.5 mg tablet 2.5 mg PO QAM RF: 0 azithromycin 250 mg tablet See Rx Instructions .ROUTE .COMPLEX RF: 0 dexamethasone 6 mg tablet 6 mg PO BID RF: 0 estradiol 1 mg tablet 1 mg PO QAM RF: 0 lisinopril 10 mg tablet 20 mg PO QAM RF: 0 triamterene-hydrochlorothiazid 37.5-25 mg tablet 1 tab PO QAM RF: 0 zinc 50 mg Tablet 50 mg PO DAILY RF: 0 Discharge Orders: Discharge Order (Routine); Ordered 03/17/21 Ordered By: London Orozco Other Ambulatory Orders: DME: Oxygen (Order) Location: None Selected Ordered By: Philip Gamble Referrals: Fidencio,MEL Zapien [Primary Care Provider] - 4-7 days Discharge Diet: Advance as tolerated Discharge Activity: Resume usual activity Patient Instructions: COVID-19 (Coronavirus Disease 2019) (ED), Opioid Safety Activity Restrictions/Additional Instructions: Take all medicine as prescribed Follow-up with primary care provider 3 to 4 days Return for any concerns. Discharge Attestations Time Spent in Discharge Care*: greater than 30 min Quality Metrics Clinical Quality Measures During this hospital stay, did patient experience: None Coding Level of Care Code Acute Chg FW DC note Diagnoses Pneumonia due to COVID-19 virus U07.1; J12.82 Hypoxia R09.02 Acute respiratory failure with hypoxia J96.01 Acute respiratory distress syndrome J80
[2021-03-17] MEDS: aspirin 81 mg EC Tablet PO (09:17)
[2021-03-17] MEDS: levoFLOXacin 750 mg Tablet PO (09:17)
[2021-03-17] MEDS: cholecalciferol (vitamin D3) 1,000 unit Tablet 1000 UNIT PO (09:17)
[2021-03-17] MEDS: famotidine 20 mg Tablet PO (09:18)
--- NOTE | 2021-03-17 11:17 | PC.NURSE ---
discharge instructions given to patient and patient verbalized understanding of instructions. patient waiting on Home O2 to be delivered.
--- NOTE | 2021-03-17 12:35 | PC.NURSE ---
patient taken to private vehicle via wheelchair by staff.
--- NOTE | 2021-03-17 12:35 | PC.NURSE ---
patient's said he has home oxygen in car.
[2021-03-17 12:39] VITALS: BP 131/84; PULSE 66; RESP 18; TEMP 36.3; O2SAT 96
== END 2021-03-17 12:43 | disposition home or self-care (01) | DRG 207 ==
LOC: ER 13:26 → MEDSURG 16:17 → ICU 03-09 11:12 → MEDSURG 03-15 20:35
PROVIDERS: Internal Medicine Critical Care Medicine; Admitting Provider Family Medicine; Emergency Provider Emergency Medicine; PCP Nurse Practitioner Family; Visit Provider Internal Medicine
DX: U07.1 COVID-19 (principal); J12.82 Pneumonia due to coronavirus disease 2019; J80 Acute respiratory distress syndrome; I10 Essential (primary) hypertension; Z79.82 Long term (current) use of aspirin
CPT/HCPCS: 36415; 36416; 36600; 71045; 71275; 80048; 80051; 80053; 81003; 82330; 82550; 82803; 82805; 82962; 83036; 83605; 83735; 83880; 84100; 84145; 84484; 85025; 85378; 85610; 86140; 86403; 87040; 87070; 87086; 87205; 87635; 87804; 92523; 92526; 92610; 93005; 94002; 94003; 94640; 94664; 94799; 96365; 96372; 96375; 97110; 97116; 97161; 97165; 97530; 99285; J0330; J0456; J0692; J0696; J0743; J1100; J1650; J1815; J1940; J2250; J2704; J3010; J3262; J3490; J7030; J7050; J7626; Q9967

== ENCOUNTER 2021-04-11 10:19 | Outpatient (CLI) | payer OTHER, SELFPAY ==
--- NOTE | 2021-04-11 10:39 | USCV_ITS ---
Gregoria Javier Age: 55 Gender: F : 1965 Exam Date: 04/11/2021 10:57 Ordering Phys: Rupali Nicolas APN Technologist: Haylee Anderson Exam Location: [facility] – [place] Indication: left arm mass, swelling HISTORY: Upper extremity swelling. PROCEDURES: Venous duplex imaging was performed in only the left upper extremity. The following venous structures were evaluated: internal jugular vein, subclavian vein, axillary vein, and brachial veins. In addition, the basilic vein, cephalic vein, radial vein, and ulnar vein. FINDINGS: Evidence of acute occlusive superficial thrombophlebitis in the left basilic vein with abnormal flow dynamics. No additional thrombus or occlusions. CONCLUSIONS Superficial thrombophlebitis is detected in the left basilic vein. No DVT left upper extremity. Dr. Mae Aviles DO (Electronically Signed) Final Date: 11 April 2021 12:25 S
== END 2021-04-11 10:20 | disposition home or self-care (01) ==
PROVIDERS: PCP Nurse Practitioner Family; Visit Provider Nurse Practitioner Family
DX: R22.32 Localized swelling, mass and lump, left upper limb (principal); M79.89 Other specified soft tissue disorders; I80.8 Phlebitis and thrombophlebitis of other sites
CPT/HCPCS: 93971

== ENCOUNTER → 2021-09-17 12:50 | Outpatient (BNVA) | payer OTHER, SELFPAY | PROVIDERS: PCP Nurse Practitioner Family; Visit Provider Nurse Practitioner Family | DX: R05.1 Acute cough (principal); U09.9 Post COVID-19 condition, unspecified | CPT/HCPCS: 71046 ==

== ENCOUNTER → 2021-11-25 10:32 | Outpatient (BNVA) | payer OTHER, SELFPAY | PROVIDERS: PCP Nurse Practitioner Family; Visit Provider Internal Medicine | DX: R70.0 Elevated erythrocyte sedimentation rate (principal); M25.50 Pain in unspecified joint; M45.0 Ankylosing spondylitis of multiple sites in spine; R09.02 Hypoxemia; L40.9 Psoriasis, unspecified | CPT/HCPCS: 72202; 73120 ==

== ENCOUNTER 2021-12-03 10:15 | Outpatient (CLI) | payer OTHER, SELFPAY ==
[2021-12-03 11:24] LABS: Erythrocyte Sedimentation Rate 26 mm/hr (0-15)
[2021-12-03 11:46] LABS: C Reactive Protein 11.6 mg/L (0.0-4.9); Creatine Phosphokinase 34 U/L (26-192); Magnesium 1.9 mg/dL (1.7-2.3); Phosphorus 3.3 mg/dL (2.5-4.5)
[2021-12-03 11:57] LABS: Calcium 9.3 mg/dL (8.5-10.5)
[2021-12-03 12:03] LABS: Parathyroid Hormone 33.9 pg/mL (15-65)
[2021-12-03 12:06] LABS: Cortisol Random 6.45 ug/dL (2.47-19.5); Hepatitis B Core AB, Total Non-Reactive (Nonreactive); Hepatitis B Surface Antigen Non-Reactive (Nonreactive); Hepatitis C Virus Antibody Non-Reactive (Nonreactive)
[2021-12-04 16:56] LABS: THYROID PEROXIDASE ANTIBODIES 1 IU/mL (<9)
[2021-12-05 12:07] LABS: HLA-B27 POSITIVE (NEGATIVE)
[2021-12-05 14:02] LABS: COMPLEMENT, TOTAL (CH50) >60 U/mL (31-60)
[2021-12-05 14:38] LABS: COMPLEMENT COMPONENT C3C 168 mg/dL (83-193); COMPLEMENT COMPONENT C4C 40 mg/dL (15-57)
[2021-12-05 15:38] LABS: CENTROMERE B ANTIBODY <1.0 NEG AI (<1.0 NEG); JO-1 ANTIBODY <1.0 NEG AI (<1.0 NEG); RNP ANTIBODY <1.0 NEG AI (<1.0 NEG); SCL-70 ANTIBODY <1.0 NEG AI (<1.0 NEG); SJOGREN'S ANTIBODY (SS-A) <1.0 NEG AI (<1.0 NEG); SM ANTIBODY <1.0 NEG AI (<1.0 NEG); SS-B <1.0 NEG AI (<1.0 NEG)
[2021-12-05 15:42] LABS: ANA SCREEN, IFA NEGATIVE (NEGATIVE); Immunoglobulin A 258 mg/dL (47-310)
[2021-12-06 08:53] LABS: Gliadin Ab.IgA <1.0 U/mL; Gliadin Ab.IgG <1.0 U/mL
[2021-12-06 09:04] LABS: Tissue Transglutaminase IgA Ab <1.0 U/mL; Tissue transglutaminase Ab.IgG <1.0 U/mL
[2021-12-06 13:27] LABS: DNA AB (DS) CRITHIDIA,IFA NEGATIVE (NEGATIVE)
== END 2021-12-03 10:16 | disposition home or self-care (01) ==
PROVIDERS: PCP Nurse Practitioner Family; Visit Provider Internal Medicine
DX: R09.02 Hypoxemia (principal); R70.0 Elevated erythrocyte sedimentation rate
CPT/HCPCS: 36415; 82310; 82533; 82550; 82784; 83516; 83735; 83970; 84100; 85651; 86140; 86160; 86162; 86235; 86255; 86376; 86704; 86803; 86812; 87340

== ENCOUNTER 2022-05-04 10:36 | Outpatient (CLI) | payer OTHER, SELFPAY ==
--- NOTE | 2022-05-04 10:49 | XR_ITS ---
WS: [id number] XR chest 2V* [id number] REASON FOR EXAM: BRONCHITIS FINDINGS: Chest appears unchanged compared to 09/17/2021. Prominent mediastinum which appears to be due to excess mediastinal fat seen on previous CT scan of t he chest. Heart size is normal. Calcified granulomatous disease in both hemithoraces. No acute pulmonary parenchymal or pleural abnormality. No significant abnormality of the bony thorax. XR/XR chest 2V* [id number] IMPRESSION: No acute chest abnormality.
== END 2022-05-04 10:37 | disposition home or self-care (01) ==
LOC: RAD 10:38
PROVIDERS: PCP Nurse Practitioner Family; Visit Provider Nurse Practitioner Family
DX: J40 Bronchitis, not specified as acute or chronic (principal)
CPT/HCPCS: 71046

== ENCOUNTER 2022-05-26 09:28 | Outpatient (CLI) | payer OTHER, SELFPAY ==
--- NOTE | 2022-05-26 09:51 | XR_ITS ---
WS: [id number] XR thoracic spine 3V* [id number] REASON FOR EXAM: Z15.89 - Genetic susceptibility to other disease FINDINGS: Minimal thoracic scoliosis convex right. No significant kyphosis. No vertebral body compression deformity or focal lesion. Mild changes of degenerative spondylosis with mild disc space narrowing and small anterior osteophyte s in the mid and lower thoracic spine. XR/XR thoracic spine 3V* [id number] IMPRESSION: Degenerative spondylosis of the thoracic spine as above.
--- NOTE | 2022-05-26 09:51 | XR_ITS ---
WS: [email or web address] XR cervical spine fl/ex [id number] REASON FOR EXAM: Z15.89 - Genetic susceptibility to other disease FINDINGS: Mild straightening of the normal lordosis of the cervical spine. Normal odontoid and vertebral bodies. Mild narrowing of the C5-C6 disc space with minimal anterior and uncinate osteophytosis. 2.5 mm anterolisthesis of C6 in relation to C5. The listhesis does not change significantly in flexio n and extension. No other abnormal vertebral body movement in flexion and extension. XR/XR cervical spine fl/ex [id number] IMPRESSION: Degenerative spondylosis as above.
[2022-05-26 10:13] LABS: Basophils # 0.1 10^3/uL (0.0-0.1); Basophils % 1.1 %; Eosinophils # 0.2 10^3/uL (0.0-0.8); Eosinophils % 2.4 %; Hematocrit 43.1 % (37.0-47.0); Hemoglobin 13.9 g/dL (11.5-15.3); Lymphocytes # 2.3 10^3/uL (0.8-4.8); Lymphocytes % 30.9 %; Mean Corpuscular HGB Conc 32.3 g/dL (30.0-36.0); Mean Corpuscular Hemoglobin 28.1 pg (28.0-34.0); Mean Corpuscular Volume 87.1 fl (81-99); Monocytes # 0.5 10^3/uL (0.2-0.9); Monocytes % 7.1 %; Neutrophils # 4.37 10^3/uL (1.8-7.7); Neutrophils % 58.1 %; Nucleated Red Blood Cells % 0 %; Platelet Count 326 10^3/cmm (130-400); Red Blood Count 4.95 10^6/uL (4.1-5.3); Red Cell Distribution Width 13.3 % (12.1-15.1); White Blood Count 7.5 10^3/uL (4.0-10.0)
[2022-05-26 10:15] LABS: Erythrocyte Sedimentation Rate 15 mm/hr (0-15)
[2022-05-26 10:30] LABS: Alanine Aminotransferase 11 U/L (0-33); Alkaline Phosphatase 96 U/L (35-105); Anion Gap 12.8 (5-19); Aspartate Amino Transferase 11 U/L (0-32); Blood Urea Nitrogen 13 mg/dL (6-20); C Reactive Protein 4.9 mg/L (0.0-4.9); Calcium 8.7 mg/dL (8.5-10.5); Carbon Dioxide 27 mmol/L (22-29); Chloride 107 mmol/L (98-107); Globulin 2.9 g/dL (1.3-4.6); Glomerular Filtration Rate 103.4 mL/min (90-130); Glucose 103 mg/dL (65-115); Osmolality Calculated 296 mOsm/kg (285-295); Potassium 3.8 mmol/L (3.5-5.1); Sodium 143 mmol/L (136-145); Total Bilirubin 0.5 mg/dL (0.15-1.2); Total Protein 6.9 g/dL (6.6-8.7)
[2022-05-26 10:31] LABS: Add Urine Microscopic? YES; Bilirubin Urine 1+ (Negative); Blood Urine Neg (Negative); Glucose Urine UA Norm (Normal); Ketones Urine 1+ (Negative); Leukocyte Esterase Urine 2+ (Negative); Nitrate Urine Negative (Negative); Protein Urine Trace (Negative); Urine Appearance Cloudy (CLEAR); Urine Color Yellow (Yellow); Urobilinogen Urine 1 mg/dL (Negative); pH Urine 6.5 (5-7)
[2022-05-26 10:32] LABS: Bacteria Urine 1+ /hpf; Mucus Urine 3+ /hpf; RBC Urine 0-4 /hpf (0-2); Squamous Epithelial Cell Urine 15-25 /hpf (0-5); WBC Urine 15-25 /hpf (0-5)
[2022-05-26 10:33] LABS: Add Urine Culture? No
[2022-05-30 23:54] LABS: Myositis EJ AB <11 SI (<11); Myositis JO-1 AB <11 SI (<11); Myositis MDA-5 AB <11 SI (<11); Myositis MI-2 Alpha AB <11 SI (<11); Myositis MI-2 Beta AB <11 SI (<11); Myositis NXP-2AB <11 SI (<11); Myositis OJ AB <11 SI (<11); Myositis PL-12 AB <11 SI (<11); Myositis PL-7 AB <11 SI (<11); Myositis SRP AB <11 SI (<11); Myositis TIF-1y AB <11 SI (<11)
== END 2022-05-26 09:29 | disposition home or self-care (01) ==
LOC: LAB 09:31
PROVIDERS: PCP Nurse Practitioner Family; Visit Provider Internal Medicine
DX: Z15.89 Genetic susceptibility to other disease (principal); M47.814 Spondylosis without myelopathy or radiculopathy, thoracic region
CPT/HCPCS: 36415; 72040; 72072; 80053; 81001; 84100; 84182; 85025; 85651; 86140; 86235

== ENCOUNTER 2022-06-11 12:26 | Outpatient (CLI) | payer OTHER, SELFPAY ==
[2022-06-11 12:45] VITALS: PULSE 77; RESP 18; O2SAT 99
[2022-06-11] MEDS: albuterol 2.5 mg/3 mL Neb INHALATION (12:45)
[2022-06-11 12:50] VITALS: PULSE 70
== END 2022-06-11 12:27 | disposition home or self-care (01) ==
LOC: RT 12:28
PROVIDERS: PCP Nurse Practitioner Family; Visit Provider Internal Medicine Pulmonary Disease
DX: R09.02 Hypoxemia (principal); U07.1 COVID-19; J12.82 Pneumonia due to coronavirus disease 2019; U09.9 Post COVID-19 condition, unspecified
CPT/HCPCS: 94060; 94726; 94729; J7613

== ENCOUNTER 2022-10-19 12:37 | Outpatient (CLI) | payer OTHER, SELFPAY ==
--- NOTE | 2022-10-19 | MR_ITS ---
WS: [id number] MRI CERVICAL SPINE NONCONTRAST TECHNIQUE: Sagittal T1, T2 and STIR imaging. Axial T2, gradient, and fiesta imaging. CLINICAL INFORMATION: RADICULOPATHY COMPARISON: None. FINDINGS: Straightening of the normal cervical lordosis. Slight retrolisthesis C5 once C6. Slight anterolisthes is of T2 on T3. C2-C3: Normal. C3-C4: Minimal disc bulging. Mild facet arthropathy. Spinal canal and foramen are patent. C4-C5: Minimal disc bulge with a tiny central protrusion. Mild facet arthropathy. Spinal canal and fo ramen are patent. C5-C6: Slight retrolisthesis. Disc osteophyte complex with mild central canal stenosis. Mild bilatera l bony foraminal narrowing C6-C7: Mild disc osteophytic ridging. Tiny central protrusion. Mild arthropathy. Spinal canal and for amen are patent. C7-T1: Normal. Visualized brain stem structures: Normal. Prevertebral soft tissues: Normal. IMPRESSION: 1. Mild cervical curve. Straightening of the normal cervical lordosis. Slight retrolisthesis C5 on C 6. 2. Disc osteophyte complex C5-C6 with mild central canal stenosis. Mild bilateral foraminal narrowin g at this level RIGHT greater than LEFT. 3. Tiny central protrusions C3-C4 C4-C5 and C6-C7 with slight effacement of the ventral thecal sac. 4. Mild to moderate facet arthropathy worse at C5-C6 and C6-C7.
--- NOTE | 2022-10-19 13:00 | MR_ITS ---
WS: [id number] MRI THORACIC SPINE WITHOUT CONTRAST TECHNIQUE: Sagittal T1, T2 and STIR imaging. Axial T2 imaging. Noncontrast imaging obtained. CLINICAL INFORMATION: M54.14 - Radiculopathy, thoracic region COMPARISON: None. FINDINGS: Mild thoracic kyphosis. No acute compression fractures. Tiny central protrusion T2-3 with slight anterolisthesis. Moderate facet arthropathy. Spinal canal is patent at this level. Tiny LEFT paracentral protrusion T6-T7 with slight effacement of the ventral thecal sac. Tiny central protrusion at T5-T6. Moderate facet arthropathy in the lower thoracic spine. Adrenal gla nds are normal. Normal paravertebral soft tissues. IMPRESSION: 1. Mild thoracic curve. Mild thoracic kyphosis. 2. No acute compression fractures. 3. Cord signal is normal. No significant central canal stenosis. 4. Slight anterolisthesis T2-3 with a tiny central protrusion. Spinal canal is patent. 5. Tiny LEFT paracentral protrusion T6-T7. Tiny shallow central protrusion at T5-T6 without signific ant central canal stenosis. 6. Moderate facet arthropathy lower thoracic spine.
== END 2022-10-19 12:38 | disposition home or self-care (01) ==
LOC: RAD 12:41
PROVIDERS: PCP Nurse Practitioner Family; Visit Provider Anesthesiology Pain Medicine
DX: M54.14 Radiculopathy, thoracic region (principal); M40.204 Unspecified kyphosis, thoracic region; M47.814 Spondylosis without myelopathy or radiculopathy, thoracic region; M43.12 Spondylolisthesis, cervical region; M48.02 Spinal stenosis, cervical region; M25.78 Osteophyte, vertebrae
CPT/HCPCS: 72141; 72146

== ENCOUNTER → 2022-11-05 12:21 | Outpatient (BNVA) | payer OTHER, SELFPAY | PROVIDERS: PCP Nurse Practitioner Family; Visit Provider Internal Medicine | DX: Z15.89 Genetic susceptibility to other disease (principal); M25.50 Pain in unspecified joint; R70.0 Elevated erythrocyte sedimentation rate | CPT/HCPCS: 36415; 80053; 83520; 85025; 85651; 86140 ==

== ENCOUNTER → 2023-06-28 13:55 | Outpatient (BNVA) | payer OTHER, SELFPAY | PROVIDERS: PCP Nurse Practitioner Family; Visit Provider Internal Medicine Rheumatology | DX: Z79.899 Other long term (current) drug therapy (principal) | CPT/HCPCS: 36415; 80076; 82565; 85025; 86140 ==

== ENCOUNTER 2023-10-27 11:30 | Outpatient (CLI) | payer OTHER, SELFPAY ==
[2023-10-27 12:27] LABS: Basophils # 0.1 10^3/uL (0.0-0.1); Basophils % 1.5 %; Eosinophils # 0.1 10^3/uL (0.0-0.8); Eosinophils % 2.1 %; Hematocrit 40.3 % (36-47); Lymphocytes # 1.9 10^3/uL (0.8-4.8); Lymphocytes % 35.3 %; Mean Corpuscular HGB Conc 33.3 g/dL (30-55); Mean Corpuscular Hemoglobin 29.2 pg (27-33); Mean Corpuscular Volume 87.8 fl (85-98); Monocytes # 0.5 10^3/uL (0.2-0.9); Monocytes % 10.2 %; Neutrophils % 50.7 %; Nucleated Red Blood Cells % 0 %; Platelet Count 280 10^3/cmm (157-399); Red Blood Count 4.59 10^6/uL (3.85-5.65); Red Cell Distribution Width 13.1 % (12.1-15.1); White Blood Count 5.32 10^3/uL (3.29-11.43)
[2023-10-27 12:46] LABS: Alanine Aminotransferase 15 U/L (0-33); Alkaline Phosphatase 87 U/L (35-105); Aspartate Amino Transferase 15 U/L (0-32); Globulin 2.8 g/dL (1.3-4.6); Total Bilirubin 0.5 mg/dL (0.15-1.2); Total Protein 6.8 g/dL (6.6-8.7)
== END 2023-10-27 11:31 | disposition home or self-care (01) ==
LOC: LAB 11:30
PROVIDERS: PCP Nurse Practitioner Family; Visit Provider Internal Medicine Rheumatology
DX: Z79.899 Other long term (current) drug therapy (principal)
CPT/HCPCS: 36415; 80076; 82565; 85025; 86140

== ENCOUNTER 2024-02-22 12:22 | Outpatient (CLI) | payer OTHER, SELFPAY ==
--- NOTE | 2024-02-22 12:25 | USR_ITS ---
PROCEDURE INFORMATION: Exam: US Soft Tissue Head and Neck, Thyroid Exam date and time: 02/22/2024 12:53 PM Age: 58 years old Clinical indication: Condition or disease; Other: Cervical lymphadenopathy TECHNIQUE: Imaging protocol: Real-time ultrasound scan of the neck with image documentation. Exam focused on the thyroid. COMPARISON: MR cervical spin wo con* [id number] 10/19/2022 1:29 PM FINDINGS: Right thyroid lobe: 4.3 cm x 1.7 cm x 1.2 cm. There are no nodules Left thyroid lobe: 4.8 cm x 1.5 cm x 1.4 cm. There is a complex nodule with solid and fluid density in the lower pole left thyroid lobe this finding measures 9 mm x 8 mm x 13 mm. Complex, smooth borders, isoechoic, no calcifications, oval. TR 2 not suspicious Isthmus: No nodules. 3 mm The right neck soft tissues shows a benign lymph node 8 mm x 7 mm x 17 mm US/US thyroid [id number] IMPRESSION: 1. Complex some cyst left thyroid lobe with non suspicious morphology 2. Otherwise negative thyroid sonogram 3. Benign lymph node right neck soft tissues
== END 2024-02-22 12:23 | disposition home or self-care (01) ==
PROVIDERS: PCP Nurse Practitioner Family; Visit Provider Nurse Practitioner Family
DX: E04.1 Nontoxic single thyroid nodule (principal); R59.0 Localized enlarged lymph nodes
CPT/HCPCS: 76536

== ENCOUNTER → 2024-05-01 14:03 | Outpatient (BNVA) | payer OTHER, SELFPAY | PROVIDERS: PCP Nurse Practitioner Family; Visit Provider Internal Medicine Rheumatology | DX: Z79.899 Other long term (current) drug therapy (principal) | CPT/HCPCS: 36415; 80076; 82565; 85025; 85651; 86140 ==

== ENCOUNTER → 2024-11-01 12:20 | Outpatient (BNVA) | payer OTHER, MEDICARE, SELFPAY | PROVIDERS: PCP Nurse Practitioner Family; Visit Provider Internal Medicine Rheumatology | DX: Z79.899 Other long term (current) drug therapy (principal) | CPT/HCPCS: 36415; 80076; 82565; 85025; 85651; 86140; 86480; 86704; 86803; 87340 ==